=== PATIENT | female | born 1990 | race Caucasian/White ===

== ENCOUNTER 2016-07-18 09:24 | Emergency (ER) | payer BC ==
[2016-07-18 09:41] VITALS: BP 115/73; PULSE 101; O2SAT 99
--- NOTE | 2016-07-18 09:43 | ERPHSYRPT ---
- History of Present Illness Time Seen by Provider: 07/18/16 09:42 Source: patient Exam Limitations: no limitations Patient Subjective Stated Complaint: pt reports intermittant fever all week- tested by pcp for flu-neg results-states that she has a nonproductive cough-all over body aches Triage Nursing Assessment: pt pale warm et dry-a & o x 3-resp nonlabored-lungs clear et equal bilaterally-abd soft et tender to palp-bowel sounds present Physician History: c/o generalised bodyache, low grade fever, dry cough for 2-3 days Timing/Duration: week(s) Fever Severity: mild Associated Symptoms: cough, muscle aches International travel in last 2 weeks: No Allergies/Adverse Reactions: codeine Adverse Reaction (Mild, Verified 07/18/16 09:36) passed out/nauseated Home Medications: No Home Meds 1 ea UD 07/18/16 [History] Hx Tetanus, Diphtheria Vaccination/Date Given: Yes Hx Influenza Vaccination/Date Given: No Hx Pneumococcal Vaccination/Date Given: No Immunizations Up to Date: Yes - Review of Systems Constitutional: Fever, Malaise, No Chills Eyes: No Symptoms Ears, Nose, & Throat: No Symptoms Respiratory: No Cough, No Dyspnea Cardiac: No Chest Pain, No Edema, No Syncope Abdominal/Gastrointestinal: No Abdominal Pain, No Nausea, No Vomiting, No Diarrhea Genitourinary Symptoms: No Dysuria Musculoskeletal: No Back Pain, No Neck Pain Skin: No Rash Neurological: No Dizziness, No Focal Weakness, No Sensory Changes Psychological: No Symptoms Endocrine: No Symptoms All Other Systems: Reviewed and Negative - Past Medical History Pertinent Past Medical History: Yes Neurological History: No Pertinent History ENT History: No Pertinent History Cardiac History: Other Respiratory History: No Pertinent History Endocrine Medical History: No Pertinent History Musculoskeletal History: No Pertinent History GI Medical History: No Pertinent History History: No Pertinent History Psycho-Social History: No Pertinent History Female Reproductive Disorders: No Pertinent History Other Medical History: cardiosyncope - Past Surgical History Past Surgical History: Yes Female Surgical History: Tubal Ligation - Social History Smoking Status: Current every day smoker How long have you smoked: 9 Exposure to second hand smoke: Yes Drug Use: none Patient Lives Alone: No - Female History Hx Last Menstrual Period: current Hx Now: Yes - Nursing Vital Signs Nursing Vital Signs: Initial Vital Signs Temperature 99.1 F Temperature Source Oral Pulse Rate 101 Respiratory Rate 22 Blood Pressure [] 115/73 Pain Intensity 7 - Physical Exam General Appearance: no apparent distress, alert Eye Exam: PERRL/EOMI ENT Exam: normal ENT inspection, No pharyngeal erythema, No tonsillar exudate Neck Exam: supple, full range of motion, No meningismus Respiratory Exam: normal breath sounds, lungs clear, no respiratory distress Cardiovascular/Chest Exam: normal heart sounds, regular rate/rhythm, No murmur, No edema Gastrointestinal/Abdominal Exam: soft, non tender, no distention Extremity Exam: non-tender, normal range of motion, normal inspection, normal capillary refill Neurologic Exam: alert, oriented x 3, cooperative, senior consultant II-XII nml as tested, normal mood/affect, sensation nml, No motor deficits Skin Exam: normal color, warm, dry, No rash SpO2: 99 Oxygen Delivery: Room Air - Course Nursing assessment & vital signs reviewed: Yes - Radiology Exams Chest X-ray Interpretation: Reviewed by me (no acute infiltrate) Ordered Tests: Active Orders 24 hr Category Date Time Status CHEST 2 VIEWS (PA AND LAT) Stat Exams 07/18/16 09:45 Taken CBC W DIFF Stat Lab 07/18/16 09:54 Completed CMP Stat Lab 07/18/16 10:00 Completed CULTURE, THROAT Stat Lab 07/18/16 09:54 Received STREP SCREEN-BETA A Stat Lab 07/18/16 09:54 Completed Lab/Rad Data: Laboratory Result Diagrams 07/18/16 09:54 07/18/16 10:00 Laboratory Results 07/18/16 07/18/16 07/18/16 Range/Units 10:00 09:54 09:54 WBC 3.0 L (4.0-10.5) K/mm3 RBC 4.53 (4.1-5.4) M/mm3 Hgb 14.0 (12.0-16.0) gm/dl Hct 40.1 (35-47) % MCV 88.5 (78-100) fl MCH 30.9 (26-32) pg MCHC 34.9 (32-36) g/dl RDW 12.9 (11.5-14.0) % Plt Count 110 L (150-450) K/mm3 MPV 13.1 H (6-9.5) fl Gran % 52.4 (36.0-66.0) % Lymphocytes % 28.6 (24.0-44.0) % Monocytes % 18.4 H (0.0-12.0) % Eosinophils % 0.3 (0.00-5.0) % Basophils % 0.3 (0.0-0.4) % Basophils # 0.01 (0-0.4) Sodium 143 (136-145) mEq/L Potassium 3.7 (3.5-5.1) mEq/L Chloride 105 (98-107) mEq/L Carbon Dioxide 26.1 (21-32) mEq/L Anion Gap 15.5 H (5-15) MEQ/L BUN 7 L (9-20) mg/dL Creatinine 0.85 (0.55-1.30) mg/dl Estimated GFR > 60 ML/MIN Glucose 83 (70-110) MG/DL Calcium 8.6 (8.5-10.1) mg/dL Total Bilirubin 0.2 (0.2-1.0) mg/dL AST 21 (15-37) U/L ALT 22 (12-78) U/L Alkaline Phosphatase 52 (46-116) U/L Serum Total Protein 7.1 (6.4-8.2) gm/dL Albumin 3.7 (3.4-5.0) g/dL Streptococcus Screen NEGATIVE (Negative) - Progress Progress: unchanged Counseled pt/family regarding: lab results, diagnosis, need for follow-up, rad results - Departure Time of Disposition: 10:56 Departure Disposition: Home Clinical Impression: Acute viral syndrome Condition: Stable Critical Care Time: No Referrals: VENUS JAVED [ACTIVE STAFF] - Instructions: Viral Syndrome, Viral Upper Respiratory Infection -- Adult Prescriptions: Benzonatate [Tessalon Perle] 100 mg PO TID #30 capsule
[2016-07-18 10:02] LABS: BASOPHIL % 0.3 % (0.0-0.4); Eosinophil % 0.3 % (0.00-5.0); Granulocytes % 52.4 % (36.0-66.0); Lymphocytes % 28.6 % (24.0-44.0); Mean Cell Volume 88.5 fl (78-100); Mean Corpuscular Hemoglobin 30.9 pg (26-32); Mean Platelet Volume 13.1 fl (6-9.5); Monocytes % 18.4 % (0.0-12.0); Platelet Count 110 K/mm3 (150-450); Red Blood Count 4.53 M/mm3 (4.1-5.4); Red Cell Distribution Width 12.9 % (11.5-14.0)
[2016-07-18 10:31] LABS: ALBUMIN 3.7 g/dL (3.4-5.0); ALKALINE PHOSPHATASE 52 U/L (46-116); ANION GAP 15.5 MEQ/L (5-15); BILIRUBIN,TOTAL 0.2 mg/dL (0.2-1.0); BLOOD UREA NITROGEN 7 mg/dL (9-20); CHLORIDE 105 mEq/L (98-107); Carbon Dioxide 26.1 mEq/L (21-32); Glucose 83 MG/DL (70-110); Potassium 3.7 mEq/L (3.5-5.1); SGOT/AST 21 U/L (15-37); SGPT/ALT 22 U/L (12-78); SODIUM 143 mEq/L (136-145); Total Protein 7.1 gm/dL (6.4-8.2)
--- NOTE | 2016-07-18 21:05 | XRAY ---
Indication: Fever and cough. Comparison: None PA/lateral chest demonstrate normal heart and lungs. Bony thorax intact with mild pectus excavatum deformity.
== END 2016-07-18 11:06 | disposition home or self-care (01) ==
LOC: ED 09:24
DX: B34.9 Viral infection, unspecified (principal); M79.1 Myalgia; R50.9 Fever, unspecified; R05 Cough
CPT/HCPCS: 36415; 71020; 80053; 85025; 87070; 87430; 87631; 99281

== ENCOUNTER 2018-05-14 07:03 | Emergency (ER) | payer BC, OTHER ==
[2018-05-14] MEDS ORDERED: TORAdol 30 mg Injection IM ONE (07:41)
--- NOTE | 2018-05-14 07:46 | ERPHSYRPT ---
- History of Present Illness Time Seen by Provider: 05/14/18 07:41 Source: patient, intake counselor Patient Subjective Stated Complaint: left bottom back tooth pain that radiates to the left ear Triage Nursing Assessment: Pt c/o that for the past 3 days her bottom left back tooth has been hurting and the pain radiates to her left ear, filling is missing on the bottom left back of mouth and reports that it has been missing for a while, vitals wnl, no other issues at this time Physician History: The patient is a 28-year-old female complaining of worsening left lower dental/ jaw pain for 4 days. The pain is now radiating up towards her left ear. She has a known cavity in the second molar. It hurts when she swallows cold liquid on that side of her mouth and it also hurts when she chews food on that side of her mouth. She denies fever or chills. Timing/Duration: gradual onset, days (4) Severity: moderate ENT Location: dental Prearrival Treatment: over the counter meds Modifying Factors: Improves With: nothing Associated Symptoms: ear pain (L), jaw pain, tooth pain, No change in hearing Allergies/Adverse Reactions: codeine Adverse Reaction (Mild, Verified 05/14/18 07:15) passed out/nauseated Hx Tetanus, Diphtheria Vaccination/Date Given: Yes Hx Influenza Vaccination/Date Given: No Hx Pneumococcal Vaccination/Date Given: No - Review of Systems Constitutional: No Fever, No Chills Eyes: No Symptoms Ears, Nose, & Throat: Mouth Pain, Other (dental pain), No Hearing Changes Respiratory: No Cough, No Dyspnea Cardiac: No Chest Pain, No Edema, No Syncope Abdominal/Gastrointestinal: No Abdominal Pain, No Nausea, No Vomiting, No Diarrhea Genitourinary Symptoms: No Dysuria Musculoskeletal: No Back Pain, No Neck Pain Skin: No Rash Neurological: No Dizziness, No Focal Weakness, No Sensory Changes Psychological: No Symptoms Endocrine: No Symptoms Hematologic/Lymphatic: No Symptoms Immunological/Allergic: No Symptoms All Other Systems: Reviewed and Negative - Past Medical History Pertinent Past Medical History: Yes Neurological History: No Pertinent History ENT History: No Pertinent History Cardiac History: Other Respiratory History: No Pertinent History Endocrine Medical History: No Pertinent History Musculoskeletal History: No Pertinent History GI Medical History: No Pertinent History History: No Pertinent History Psycho-Social History: No Pertinent History Female Reproductive Disorders: No Pertinent History Other Medical History: cardiosyncope - Past Surgical History Past Surgical History: Yes Female Surgical History: Tubal Ligation - Social History Smoking Status: Current every day smoker How long have you smoked: 9 Exposure to second hand smoke: Yes Drug Use: none Patient Lives Alone: No - Female History Hx Now: No (tubal) - Nursing Vital Signs Nursing Vital Signs: Initial Vital Signs Temperature 97.8 F 05/14/18 07:09 Pulse Rate 85 05/14/18 07:09 Blood Pressure 113/77 05/14/18 07:09 O2 Sat by Pulse Oximetry 98 05/14/18 07:09 Pain Scale Pain Intensity 8 - Physical Exam General Appearance: no apparent distress, alert Eye Exam: bilateral eye: normal inspection, PERRL Ear Exam: left ear: TM normal, bilateral ear: auricle normal, canal normal Nasal Exam: normal inspection Throat Exam: dental tenderness (There is a cavity in the second molar from the rear on the left lower jaw. This has tenderness to palpation. There is minimal swelling or edema of the she rounding gum tissue.) Neck Exam: supple Cardiovascular/Respiratory Exam: normal breath sounds, regular rate/rhythm Abdominal Exam: non-tender, soft Neurologic Exam: alert, oriented x 3, sensation nml, No motor deficits Skin Exam: normal color, warm, dry SpO2 Interpretation: normal SpO2: 98 Oxygen Delivery: Room Air - Progress Progress: improved Counseled pt/family regarding: diagnosis, need for follow-up - Departure Time of Disposition: 07:47 Departure Disposition: Home Clinical Impression: Pain, dental Condition: Stable Critical Care Time: No Referrals: VALENCIA WILKES [Primary Care Provider] - Additional Instructions: You have dental pain that is due to a cavity in the tooth on the left lower jaw. You were given Toradol 60 mg by IM in the ER. Take naproxen 500 mg every 12 hours as needed. You may also take Tylenol 1000 mg every 6-8 hours. Take penicillin 500 mg 4 times a day for 10 days. Apply dental wax from over-the- counter to the cavity. Follow-up with the dentist as soon as possible. Prescriptions: Naproxen 500 mg PO BID PRN #30 tablet Penicillin V Potassium 500 mg PO QID #40 tablet
[2018-05-14] MEDS ORDERED: TORAdol 30 mg Injection ONE (07:53)
[2018-05-14 08:05] VITALS: BP 129/81; PULSE 70; O2SAT 100
== END 2018-05-14 08:23 | disposition home or self-care (01) ==
LOC: ED 07:03
DX: K08.89 Other specified disorders of teeth and supporting structures (principal)
CPT/HCPCS: 96372; 99283; J1885

== ENCOUNTER 2020-11-04 08:45 | Emergency (ER) | payer BC ==
[2020-11-04 09:03] VITALS: O2SAT 98
--- NOTE | 2020-11-04 09:25 | ERPHSYRPT ---
- History of Present Illness Time Seen by Provider: 11/04/20 09:00 Historian: patient Exam Limitations: no limitations Patient Subjective Stated Complaint: Pt states that she was having severe pain and went to the bathroom and she began vomiting from the pain, bowel movement was normal but extremely painful, hx of same issue Triage Nursing Assessment: Pt brought self to the ER, vitals wnl, denies pain at this time, tender to palpatation to the RLQ, pt states that the pain originally was in her greg lower back and it radiated to her greg lower abdomen, doesn't appear to be in any distress at this time Physician History: Patient is a 30-year-old female presents to our ED with complaints of abdominal cramping. Patient has been experiencing intermittent abdominal cramping for several months possibly even years. Today symptoms are typical of her usual cramping. Patient states that most of the time she can tolerate the pain is spontaneously resolved. Occasionally the pain worsens to the point where she comes to the ER for pain control. Patient is currently asymptomatic. Patient's most recent cramping occurred this morning. Patient states the pain made her feel nauseous and she vomited once. Patient had 2 bowel movements afterward. The pain then significantly subsided. Patient is currently pain-free. However she has slight tenderness over the suprapubic region. She has no right lower quadrant tenderness. No rebound or guarding. Patient states she has a history of irritable bowel syndrome. Patient believes her symptoms are the same. No associated fever. No diarrhea. No bloody stool. No urinary symptoms at this time. Patient states she is otherwise healthy. She denies trauma. Patient voices no other complaints or concerns at this time. Timing/Duration: today Activities at Onset: none Quality: cramping Abdominal Pain Onset Location: periumbilical Pain Radiation: no radiation Severity of Pain-Max: moderate Severity of Pain-Current: mild Modifying Factors: Improves With: defecating (Bowel movement significantly improved pain.) Associated Symptoms: nausea, vomiting, No diarrhea, No shortness of breath, No syncope, No weakness Previous symptoms: same symptoms as today Allergies/Adverse Reactions: codeine Adverse Reaction (Mild, Verified 11/04/20 09:03) passed out/nauseated Hx Tetanus, Diphtheria Vaccination/Date Given: Yes Hx Influenza Vaccination/Date Given: No Hx Pneumococcal Vaccination/Date Given: No Travel Risk - International Travel Have you traveled outside of the country in past 3 weeks: No - Coronavirus Screening Are you exhibiting any of the following symptoms?: No Close contact with a COVID-19 positive Pt in past 14-21 Days: No - Vaccine Status Have you recieved a Covid-19 vaccination: No - Review of Systems Constitutional: No Symptoms, No Fever, No Chills Eyes: No Symptoms Ears, Nose, & Throat: No Symptoms Respiratory: No Symptoms, No Cough, No Dyspnea Cardiac: No Symptoms, No Chest Pain, No Edema, No Syncope Abdominal/Gastrointestinal: No Symptoms, No Abdominal Pain, No Nausea, No Vomiting, No Diarrhea Genitourinary Symptoms: No Symptoms, No Dysuria Musculoskeletal: No Symptoms, No Back Pain, No Neck Pain Skin: No Symptoms, No Rash Neurological: No Symptoms, No Dizziness, No Focal Weakness, No Sensory Changes Psychological: No Symptoms Endocrine: No Symptoms Hematologic/Lymphatic: No Symptoms Immunological/Allergic: No Symptoms All Other Systems: Reviewed and Negative - Past Medical History Pertinent Past Medical History: Yes Neurological History: No Pertinent History ENT History: No Pertinent History Cardiac History: Other Respiratory History: No Pertinent History Endocrine Medical History: No Pertinent History Musculoskeletal History: No Pertinent History GI Medical History: No Pertinent History History: No Pertinent History Psycho-Social History: No Pertinent History Female Reproductive Disorders: No Pertinent History Other Medical History: cardiosyncope - Past Surgical History Past Surgical History: Yes Female Surgical History: Tubal Ligation - Social History Smoking Status: Current every day smoker How long have you smoked: 9 Exposure to second hand smoke: Yes Drug Use: none Patient Lives Alone: No - Female History Hx Last Menstrual Period: 10/07/2020 Hx Now: No - Nursing Vital Signs Nursing Vital Signs: Initial Vital Signs Temperature 97.0 F 11/04/20 08:52 Pulse Rate 67 11/04/20 08:52 Blood Pressure 135/73 11/04/20 08:52 O2 Sat by Pulse Oximetry 98 11/04/20 08:52 Pain Scale Pain Intensity 2 - Physical Exam General Appearance: no apparent distress, alert Eye Exam: PERRL/EOMI, eyes nml inspection Ears, Nose, Throat Exam: normal ENT inspection, pharynx normal, moist mucous membranes Neck Exam: normal inspection, non-tender, supple, full range of motion Respiratory Exam: normal breath sounds, lungs clear, No respiratory distress Cardiovascular Exam: regular rate/rhythm, normal heart sounds Gastrointestinal/Abdomen Exam: soft, other (Slight suprapubic tenderness. Remaining abdominal exam and pelvic exam is nonremarkable. Patient currently pain-free.), No tenderness, No mass Back Exam: normal inspection, normal range of motion, No CVA tenderness, No ve rtebral tenderness Extremity Exam: normal inspection, normal range of motion, pelvis stable Neurologic Exam: alert, oriented x 3, cooperative, normal mood/affect, nml cerebellar function, sensation nml, No motor deficits Skin Exam: normal color, warm, dry Lymphatic Exam: No adenopathy SpO2 Interpretation: normal SpO2: 98 O2 Delivery: Room Air - Course Nursing assessment & vital signs reviewed: Yes - Radiology Exams Abdomen X-ray Interpretation: Teleradiologist Report (KUB again nonacute and nonobstructed with now mild scattered fecal debris. Solid organs and osseous structures unremarkable.) Ordered Tests: Active Orders 24 hr Category Date Time Status IV Insertion STAT Care 11/04/20 09:07 Completed KUB Stat Exams 11/04/20 09:07 Completed CBC W DIFF Stat Lab 11/04/20 09:47 Completed CMP Stat Lab 11/04/20 09:47 Completed HCG,QUALITATIVE URINE Stat Lab 11/04/20 09:09 Completed LIPASE Stat Lab 11/04/20 09:47 Completed TROPONIN Q3H Lab 11/04/20 09:47 Completed UA W/RFX UR CULTURE Stat Lab 11/04/20 09:09 Completed Lab/Rad Data: Laboratory Result Diagrams 11/04/20 09:47 11/04/20 09:47 Laboratory Results 11/04/20 11/04/20 11/04/20 Range/Units 09:47 09:47 09:47 WBC 8.0 (4.0-10.5) K/mm3 RBC 4.60 (4.1-5.4) M/mm3 Hgb 13.7 (12.0-16.0) gm/dl Hct 41.6 (35-47) % MCV 90.4 (78-100) fl MCH 29.8 (26-32) pg MCHC 32.9 (32-36) g/dl RDW 13.2 (11.5-14.0) % Plt Count 199 (150-450) K/mm3 MPV 12.6 H (7.5-11.0) fl Gran % 64.6 (36.0-66.0) % Eos # (Auto) 0.32 (0-0.5) Absolute Lymphs (auto) 1.97 (1.0-4.6) Absolute Monos (auto) 0.54 (0.0-1.3) Lymphocytes % 24.5 (24.0-44.0) % Monocytes % 6.7 (0.0-12.0) % Eosinophils % 4.0 (0.00-5.0) % Basophils % 0.2 (0.0-0.4) % Absolute Granulocytes 5.18 (1.4-6.9) Basophils # 0.02 (0-0.4) Sodium 138 (137-145) mmol/L Potassium 4.1 (3.5-5.1) mmol/L Chloride 106 (98-107) mmol/L Carbon Dioxide 24 (22-30) mmol/L Anion Gap 11.5 (5-15) MEQ/L BUN 13 (7-17) mg/dL Creatinine 0.81 (0.52-1.04) mg/dL Estimated GFR > 60.0 ML/MIN Glucose 103 (74-106) mg/dL Calcium 8.9 (8.4-10.2) mg/dL Total Bilirubin 0.30 (0.2-1.3) mg/dL AST 18 (14-36) U/L ALT 15 (0-35) U/L Alkaline Phosphatase 58 (38-126) U/L Troponin I < 0.012 (0.000-0.034) ng/mL Serum Total Protein 7.2 (6.3-8.2) g/dL Albumin 4.2 (3.5-5.0) g/dL Lipase 65 (23-300) U/L Urine Color (YELLOW) Urine Appearance (CLEAR) Urine pH (5-6) Ur Specific [place] (1.005-1.025) Urine Protein (Negative) Urine Ketones (NEGATIVE) Urine Blood (0-5) Lester/ul Urine Nitrite (NEGATIVE) Urine Bilirubin (NEGATIVE) Urine Urobilinogen (0-1) mg/dL Ur Leukocyte Esterase (NEGATIVE) Urine WBC (Auto) (0-5) /HPF Urine RBC (Auto) (0-2) /HPF U Epithel Cells (Auto) (FEW) /HPF Urine Bacteria (Auto) (NEGATIVE) /HPF Urine Mucus (Auto) (NEGATIVE) /HPF Urine Culture Reflexed (NO) Urine Glucose (NEGATIVE) mg/dL Urine HCG, Qual (Negative) 11/04/20 11/04/20 Range/Units 09:09 09:09 WBC (4.0-10.5) K/mm3 RBC (4.1-5.4) M/mm3 Hgb (12.0-16.0) gm/dl Hct (35-47) % MCV (78-100) fl MCH (26-32) pg MCHC (32-36) g/dl RDW (11.5-14.0) % Plt Count (150-450) K/mm3 MPV (7.5-11.0) fl Gran % (36.0-66.0) % Eos # (Auto) (0-0.5) Absolute Lymphs (auto) (1.0-4.6) Absolute Monos (auto) (0.0-1.3) Lymphocytes % (24.0-44.0) % Monocytes % (0.0-12.0) % Eosinophils % (0.00-5.0) % Basophils % (0.0-0.4) % Absolute Granulocytes (1.4-6.9) Basophils # (0-0.4) Sodium (137-145) mmol/L Potassium (3.5-5.1) mmol/L Chloride (98-107) mmol/L Carbon Dioxide (22-30) mmol/L Anion Gap (5-15) MEQ/L BUN (7-17) mg/dL Creatinine (0.52-1.04) mg/dL Estimated GFR ML/MIN Glucose (74-106) mg/dL Calcium (8.4-10.2) mg/dL Total Bilirubin (0.2-1.3) mg/dL AST (14-36) U/L ALT (0-35) U/L Alkaline Phosphatase (38-126) U/L Troponin I (0.000-0.034) ng/mL Serum Total Protein (6.3-8.2) g/dL Albumin (3.5-5.0) g/dL Lipase (23-300) U/L Urine Color YELLOW (YELLOW) Urine Appearance CLEAR (CLEAR) Urine pH 5.0 (5-6) Ur Specific [place] 1.025 (1.005-1.025) Urine Protein NEGATIVE (Negative) Urine Ketones NEGATIVE (NEGATIVE) Urine Blood NEGATIVE (0-5) Lester/ul Urine Nitrite NEGATIVE (NEGATIVE) Urine Bilirubin NEGATIVE (NEGATIVE) Urine Urobilinogen 2 (0-1) mg/dL Ur Leukocyte Esterase NEGATIVE (NEGATIVE) Urine WBC (Auto) 0-2 (0-5) /HPF Urine RBC (Auto) 0-2 (0-2) /HPF U Epithel Cells (Auto) RARE (FEW) /HPF Urine Bacteria (Auto) NONE (NEGATIVE) /HPF Urine Mucus (Auto) SLIGHT (NEGATIVE) /HPF Urine Culture Reflexed NO (NO) Urine Glucose NEGATIVE (NEGATIVE) mg/dL Urine HCG, Qual NEGATIVE (Negative) - Progress Progress: improved Progress Note: Patient reassessed. She is well. Vital stable. She remains pain-free. Laboratory work-up essentially nonremarkable. No leukocytosis. A prescription for Bentyl was forwarded to patient's pharmacy. Patient agrees to follow-up with her primary care doctor within 48 hours for reevaluation. Patient voices no other complaints or concerns at this time. Will discharge home. 11/04/20 10:36 Counseled pt/family regarding: lab results, diagnosis, need for follow-up, rad results - Departure Departure Disposition: Home Clinical Impression: intestinal colic, Abdominal cramping Condition: Stable Critical Care Time: No Referrals: VALENCIA WILKES [Primary Care Provider] - Additional Instructions: Discharge/Care Plan ISAAC JEREZ was seen on 11/04/20 in the Emergency Room. The patient was counseled regarding Diagnosis,Lab results, Imaging studies, need for follow up and when to return to the Emergency Room. Prescriptions given: Discharge Note I have spoken with the patient and/or caregivers. I have explained the patient's condition, diagnosis and treatment plan based on the information available to me at this time. I have answered the patient's and/or caregiver's questions and addressed any concerns. The patient and/or caregivers have as good understanding of the patient's diagnosis, condition and treatment plan as can be expected at this point. The vital signs have been stable. The patient's condition is stable and appropriate for discharge from the emergency department. The patient will pursue further outpatient evaluation with the primary care physician or other designated or consulting physician as outlined in the discharge instructions. The patient and/or caregivers are agreeable to this plan of care and follow-up instructions have been explained in detail. The patient and/or caregivers have received these instruction. The patient/and or caregivers are aware that any significant change in condition or worsening of symptoms should prompt an immediate return to this or the closest emergency department or call 911. Prescriptions: Dicyclomine HCl 20 mg [Bentyl 20 mg] 20 mg PO TID 5 Days #15 tablet
--- NOTE | 2020-11-04 09:30 | XRAY ---
Indication: Pain with bowel movements. Comparison: November 03, 2016. KUB again nonacute and nonobstructed with now mild scattered fecal debris. Solid organs and osseous structures unremarkable.
[2020-11-04 09:49] LABS: Absolute Neutrophil Ct (ANC) 5.18 (1.4-6.9); BASOPHIL % 0.2 % (0.0-0.4); Basophil (Absolute #) 0.02 (0-0.4); Eosinophil (Absolute #) 0.32 (0-0.5); Hematocrit 41.6 % (35-47); Hemoglobin 13.7 gm/dl (12.0-16.0); Lymphocyte (Absolute #) 1.97 (1.0-4.6); Lymphocytes % 24.5 % (24.0-44.0); Mean Cell Volume 90.4 fl (78-100); Mean Corpuscular Hemoglobin 29.8 pg (26-32); Mean Corpuscular Hgb Concent. 32.9 g/dl (32-36); Mean Platelet Volume 12.6 fl (7.5-11.0); Monocyte (Absolute #) 0.54 (0.0-1.3); Monocytes % 6.7 % (0.0-12.0); Neutrophil % 64.6 % (36.0-66.0); Platelet Count 199 K/mm3 (150-450); Red Cell Distribution Width 13.2 % (11.5-14.0)
[2020-11-04 10:00] LABS: ALBUMIN 4.2 g/dL (3.5-5.0); ALKALINE PHOSPHATASE 58 U/L (38-126); ANION GAP 11.5 MEQ/L (5-15); BLOOD UREA NITROGEN 13 mg/dL (7-17); CHLORIDE 106 mmol/L (98-107); Calcium 8.9 mg/dL (8.4-10.2); Carbon Dioxide 24 mmol/L (22-30); Creatinine 1 0.81 mg/dL (0.52-1.04); EST GLOMERULAR FILTRATION RATE > 60.0 ML/MIN; Glucose 103 mg/dL (74-106); LIPASE 65 U/L (23-300); Potassium 4.1 mmol/L (3.5-5.1); SGOT/AST 18 U/L (14-36); SGPT/ALT 15 U/L (0-35); SODIUM 138 mmol/L (137-145); Total Protein 7.2 g/dL (6.3-8.2)
[2020-11-04 10:15] LABS: Appearance CLEAR (CLEAR); Bilirubin NEGATIVE (NEGATIVE); Blood NEGATIVE Ery/ul (0-5); Epithelial Cells RARE /HPF (FEW); Glucose NEGATIVE (NEGATIVE); Ketones NEGATIVE (NEGATIVE); Leukocyte Esterase NEGATIVE (NEGATIVE); Mucus SLIGHT /HPF (NEGATIVE); Nitrite NEGATIVE (NEGATIVE); Protein,Urine Dip NEGATIVE (Negative); RBC 0-2 /HPF (0-2); Specific Gravity 1.025 (1.005-1.025); Urobilinogen 2 mg/dL (0-1); WBC 0-2 /HPF (0-5)
[2020-11-04 10:35] VITALS: BP 128/71; PULSE 62
== END 2020-11-04 10:45 | disposition home or self-care (01) ==
LOC: ED 08:45
DX: R10.84 Generalized abdominal pain (principal)
CPT/HCPCS: 36000; 36415; 74018; 80053; 81001; 83690; 84484; 84703; 85025; 99284

== ENCOUNTER 2021-10-11 12:15 | Emergency (ER) | payer BC ==
--- NOTE | 2021-10-11 13:28 | ERPHSYRPT ---
- History of Present Illness Time Seen by Provider: 10/11/21 13:22 Source: patient Exam Limitations: no limitations Patient Subjective Stated Complaint: pt here for weakness for over a week now, her in covid positive, fever 3 days ago, none now. drinking well Triage Nursing Assessment: pt alert, walked in, resp easy, skin w/d/p, face mask in place, no edema, no cough Physician History: pt is feeling weak, had prior w/u and told cardio syncope and no procedure other than testing. no focal neuro deficits. No headache , no trauma. No chest or abd pain or SOBreath. has Covid. Timing/Duration: day(s) Severity: moderate Associated Symptoms: weakness Allergies/Adverse Reactions: codeine Adverse Reaction (Mild, Verified 10/11/21 12:44) passed out/nauseated Home Medications: No Reportable Medications [No Reported Medications] 10/11/21 [History] Hx Tetanus, Diphtheria Vaccination/Date Given: No Hx Influenza Vaccination/Date Given: No Hx Pneumococcal Vaccination/Date Given: No Immunizations Up to Date: Yes Travel Risk - International Travel Have you traveled outside of the country in past 3 weeks: No - Coronavirus Screening Are you exhibiting any of the following symptoms?: Yes Symptoms: Shortness of Breath, Loss of Taste or Smell Close contact with a COVID-19 positive Pt in past 14-21 Days: Yes - Vaccine Status Have you recieved a Covid-19 vaccination: No - Review of Systems Constitutional: No Fever, No Chills Eyes: No Symptoms Ears, Nose, & Throat: No Symptoms Respiratory: No Cough, No Dyspnea Cardiac: No Chest Pain, No Edema, No Syncope Abdominal/Gastrointestinal: No Abdominal Pain, No Nausea, No Vomiting, No Diarrhea Genitourinary Symptoms: No Dysuria Musculoskeletal: Myalgias, No Back Pain, No Neck Pain Skin: No Rash Neurological: No Symptoms, No Dizziness, No Focal Weakness, No Sensory Changes Psychological: No Symptoms Endocrine: No Symptoms Hematologic/Lymphatic: No Symptoms Immunological/Allergic: No Symptoms All Other Systems: Reviewed and Negative - Past Medical History Pertinent Past Medical History: Yes Neurological History: No Pertinent History ENT History: No Pertinent History Cardiac History: Other Respiratory History: No Pertinent History Endocrine Medical History: No Pertinent History Musculoskeletal History: No Pertinent History GI Medical History: No Pertinent History History: No Pertinent History Psycho-Social History: No Pertinent History Female Reproductive Disorders: No Pertinent History Other Medical History: cardiosyncope - Past Surgical History Past Surgical History: Yes Female Surgical History: Tubal Ligation - Social History Smoking Status: Current every day smoker How long have you smoked: 9 Exposure to second hand smoke: Yes Drug Use: none Patient Lives Alone: No - Female History Hx Last Menstrual Period: last week Hx Now: No - Nursing Vital Signs Nursing Vital Signs: Initial Vital Signs Pulse Rate 97 H 10/11/21 12:39 Respiratory Rate 18 10/11/21 12:39 Blood Pressure 120/77 10/11/21 12:39 O2 Sat by Pulse Oximetry 100 10/11/21 12:39 Pain Scale Pain Intensity 0 - Physical Exam General Appearance: no apparent distress, alert Eye Exam: PERRL/EOMI, eyes nml inspection Ears, Nose, Throat Exam: normal ENT inspection, TMs normal, pharynx normal, moist mucous membranes Neck Exam: normal inspection, non-tender, supple, full range of motion Respiratory Exam: normal breath sounds, lungs clear, No respiratory distress Cardiovascular Exam: regular rate/rhythm, normal heart sounds, normal peripheral pulses Gastrointestinal/Abdomen Exam: soft, normal bowel sounds, No tenderness, No mass Pelvic Exam: deferred Rectal Exam: deferred Back Exam: normal inspection, normal range of motion, No CVA tenderness, No vertebral tenderness Extremity Exam: normal inspection, normal range of motion, pelvis stable Neurologic Exam: alert, oriented x 3, cooperative, normal mood/affect, nml cerebellar function, nml station & gait, sensation nml, No motor deficits Skin Exam: normal color, warm, dry, No rash Lymphatic Exam: No adenopathy SpO2 Interpretation: normal SpO2: 100 O2 Delivery: Room Air - Course Nursing assessment & vital signs reviewed: Yes EKG Interpreted by Me: Sinus Rhythm, NORMAL AXIS, NORMAL INTERVALS, NORMAL QRS, Other (appears normal) - Radiology Exams Chest X-ray Interpretation: Reviewed by me, No Infiltrates, Other (circulaR HEART) Ordered Tests: Active Orders 24 hr Category Date Time Status EKG-ER Only STAT Care 10/11/21 13:31 Active IV Insertion STAT Care 10/11/21 13:31 Active CHEST 1 VIEW (PORTABLE) Stat Exams 10/11/21 13:57 Taken CBC W DIFF Stat Lab 10/11/21 14:04 Received CMP Stat Lab 10/11/21 14:04 Completed HCG QUALITATIVE,SERUM Stat Lab 10/11/21 14:04 Completed Lactic Acid Stat Lab 10/11/21 13:31 Completed TROPONIN Q3H Lab 10/11/21 14:04 Completed TROPONIN Q3H Lab 10/11/21 16:45 Ordered TROPONIN Q3H Lab 10/11/21 19:45 Ordered TROPONIN Q3H Lab 10/11/21 22:45 Ordered TROPONIN Q3H Lab 10/12/21 01:45 Ordered UA W/RFX CULTURE Stat Lab 10/11/21 13:47 Completed Medication Summary Discontinued Medications Generic Name Dose Route Start Last Admin Trade Name Anthonyq PRN Reason Stop Dose Admin Sodium Chloride 1,000 mls @ 999 mls/hr 10/11/21 13:31 10/11/21 15:02 Sodium Chloride 0.9% 1000 Ml IV 10/11/21 14:31 Infused .Q1H1M STA Infusion Sodium Chloride Confirm 10/11/21 13:43 Sodium Chloride 0.9% 1000 Ml Administered 10/11/21 13:44 Dose 1,000 mls @ ud .ROUTE .[facility] Lab/Rad Data: Laboratory Result Diagrams 10/11/21 14:04 Laboratory Results 10/11/21 10/11/21 10/11/21 Range/Units 14:04 14:04 14:04 Sodium 143 (137-145) mmol/L Potassium 3.8 (3.5-5.1) mmol/L Chloride 106 (98-107) mmol/L Carbon Dioxide 27 (22-30) mmol/L Anion Gap 13.2 (5-15) MEQ/L BUN 5 L (7-17) mg/dL Creatinine 0.71 (0.52-1.04) mg/dL Estimated GFR > 60.0 ML/MIN Glucose 103 (74-106) mg/dL Lactic Acid (0.4-2.0) Calcium 9.2 (8.4-10.2) mg/dL Total Bilirubin 0.70 (0.2-1.3) mg/dL AST 18 (14-36) U/L ALT 17 (0-35) U/L Alkaline Phosphatase 63 (38-126) U/L Troponin I < 0.012 (0.000-0.034) ng/mL Serum Total Protein 6.7 (6.3-8.2) g/dL Albumin 3.8 (3.5-5.0) g/dL Serum , Qual NEGATIVE (Negative) Urinalys Dipstick Clnc Urine Color (YELLOW) Urine Appearance (CLEAR) Urine pH (5-6) Ur Specific [place] (1.005-1.025) POC Urine Protein Conf (Negative) Urine Ketones (NEGATIVE) Urine Nitrite (NEGATIVE) Urine Bilirubin (NEGATIVE) Urine Urobilinogen (0-1) mg/dL Urine Leukocytes (NEGATIVE) Urine WBC (Auto) (0-5) /HPF Urine RBC (Auto) (0-2) /HPF U Epithel Cells (Auto) (FEW) /HPF Urine Bacteria (Auto) (NEGATIVE) /HPF Urine RBC (0-5) Lester/ul Ur Culture Indicated? Urine Glucose (NEGATIVE) mg/dL Influenza Type A Ag (NEGATIVE) Influenza Type B Ag (NEGATIVE) RSV (PCR) (Negative) SARS-CoV-2 (PCR) (NEGATIVE) 10/11/21 10/11/21 10/11/21 Range/Units 14:04 13:47 13:31 Sodium (137-145) mmol/L Potassium (3.5-5.1) mmol/L Chloride (98-107) mmol/L Carbon Dioxide (22-30) mmol/L Anion Gap (5-15) MEQ/L BUN (7-17) mg/dL Creatinine (0.52-1.04) mg/dL Estimated GFR ML/MIN Glucose (74-106) mg/dL Lactic Acid 0.7 (0.4-2.0) Calcium (8.4-10.2) mg/dL Total Bilirubin (0.2-1.3) mg/dL AST (14-36) U/L ALT (0-35) U/L Alkaline Phosphatase (38-126) U/L Troponin I (0.000-0.034) ng/mL Serum Total Protein (6.3-8.2) g/dL Albumin (3.5-5.0) g/dL Serum , Qual (Negative) Urinalys Dipstick Clnc MAIN LAB Urine Color YELLOW (YELLOW) Urine Appearance CLEAR (CLEAR) Urine pH 6.5 (5-6) Ur Specific [place] <=1.005 (1.005-1.025) POC Urine Protein Conf NEGATIVE (Negative) Urine Ketones NEGATIVE (NEGATIVE) Urine Nitrite NEGATIVE (NEGATIVE) Urine Bilirubin NEGATIVE (NEGATIVE) Urine Urobilinogen 0.2 (0-1) mg/dL Urine Leukocytes NEGATIVE (NEGATIVE) Urine WBC (Auto) NONE (0-5) /HPF Urine RBC (Auto) NONE (0-2) /HPF U Epithel Cells (Auto) NONE (FEW) /HPF Urine Bacteria (Auto) NONE (NEGATIVE) /HPF Urine RBC SMALL (0-5) Lester/ul Ur Culture Indicated? NO Urine Glucose NEGATIVE (NEGATIVE) mg/dL Influenza Type A Ag NEGATIVE (NEGATIVE) Influenza Type B Ag NEGATIVE (NEGATIVE) RSV (PCR) NEGATIVE (Negative) SARS-CoV-2 (PCR) POSITIVE A (NEGATIVE) - Progress Progress: improved, re-examined Progress Note: 10/11/21 15:35 cardiac score <3 atypical symptoms for cardiac and COvid diagnosis most likely source of symptoms. Wells crit low and percs out. chest clear. No actual chest pain. 10/11/21 15:50 Counseled pt/family regarding: lab results, diagnosis, need for follow-up, rad results - Departure Departure Disposition: Home Clinical Impression: COVID-19 Condition: Good Critical Care Time: No Referrals: VALENCIA WILKES NP [Primary Care Provider] - Follow up/PCP as directed Instructions: Coronavirus Disease 2019 (COVID-19) (DC), Blood in the Urine (Hematuria) in Adults Additional Instructions: Followup with your for the heart shape on the x-ray, and to recheck the trace blood in urine. Quaratine for the covid virus as advised. Return meantime if short of breath or any other concerns.
[2021-10-11] MEDS ORDERED: Sodium Chloride 0.9% 1000 ML 1,000 ML IV STA (13:31)
[2021-10-11] MEDS ORDERED: Sodium Chloride 0.9% 1000 ML 1,000 ML ONE (13:43)
[2021-10-11 13:55] LABS: Absolute Neutrophil Ct (ANC) 5.38 x10^3/uL (1.4-6.9); Basophil (Absolute #) 0.02 x10^3/uL (0-0.4); Eosinophil % 0.7 % (0.00-5.0); Eosinophil (Absolute #) 0.05 x10^3/uL (0-0.5); Hematocrit 37.8 % (35-47); Hemoglobin 12.8 g/dL (12.0-16.0); Lymphocyte (Absolute #) 1.26 x10^3/uL (1.0-4.6); Lymphocytes % 16.8 % (24.0-44.0); Mean Corpuscular Hemoglobin 30.5 pg (26-32); Mean Corpuscular Hgb Concent. 33.9 g/dL (32-36); Mean Platelet Volume 11.7 fL (7.5-11.0); Monocyte (Absolute #) 0.75 x10^3/uL (0.0-1.3); Neutrophil % 71.8 % (36.0-66.0); Platelet Count 145 x10^3/uL (150-450); Red Cell Distribution Width 12.5 % (11.5-14.0); White Blood Count 7.5 x10^3/uL (4.0-10.5)
[2021-10-11 13:59] LABS: Appearance CLEAR (CLEAR); Bilirubin NEGATIVE (NEGATIVE); Dipstick done @ ? MAIN LAB; Glucose NEGATIVE (NEGATIVE); Ketones NEGATIVE (NEGATIVE); Nitrite NEGATIVE (NEGATIVE); Ph 6.5 (5-6); Protein,Urine Dip NEGATIVE (Negative); RBC SMALL Ery/ul (0-5); Specific Gravity <=1.005 (1.005-1.025); Urobilinogen 0.2 mg/dL (0-1)
[2021-10-11 14:01] LABS: Urine Cultured Indicated? NO
[2021-10-11 14:16] LABS: ALBUMIN 3.8 g/dL (3.5-5.0); ALKALINE PHOSPHATASE 63 U/L (38-126); ANION GAP 13.2 MEQ/L (5-15); BLOOD UREA NITROGEN 5 mg/dL (7-17); CHLORIDE 106 mmol/L (98-107); Calcium 9.2 mg/dL (8.4-10.2); Carbon Dioxide 27 mmol/L (22-30); Creatinine 1 0.71 mg/dL (0.52-1.04); EST GLOMERULAR FILTRATION RATE > 60.0 ML/MIN; Glucose 103 mg/dL (74-106); Potassium 3.8 mmol/L (3.5-5.1); SGOT/AST 18 U/L (14-36); SGPT/ALT 17 U/L (0-35); SODIUM 143 mmol/L (137-145); Total Protein 6.7 g/dL (6.3-8.2)
[2021-10-11 14:31] LABS: INFLUENZA A NEGATIVE (NEGATIVE); INFLUENZA B NEGATIVE (NEGATIVE); RESPIRATORY SYNCTIAL VIRUS NEGATIVE (Negative)
[2021-10-11 15:07] LABS: SARS-CoV-2 Xpert Express POSITIVE (NEGATIVE)
[2021-10-11 15:14] VITALS: BP 98/67; PULSE 71
[2021-10-11 15:48] VITALS: O2SAT 100
--- NOTE | 2021-10-11 21:11 | XRAY ---
Indication: Weakness. Covid 19 exposure. Comparison: July 18, 2016. Portable chest again demonstrates normal heart, lungs, and bony thorax.
== END 2021-10-11 15:57 | disposition home or self-care (01) ==
LOC: ED 12:15
DX: U07.1 COVID-19 (principal); R53.1 Weakness; Z20.822 Contact with and (suspected) exposure to COVID-19; Z72.0 Tobacco use
CPT/HCPCS: 0241U; 36000; 36415; 71045; 80053; 81015; 81025; 83605; 84484; 85025; 93005; 96360; 99284

== ENCOUNTER 2022-08-05 07:55 | Emergency (ER) | payer BC ==
[2022-08-05] MEDS ORDERED: Sodium Chloride 0.9% 1000 ML 1,000 ML IV STA (08:51)
[2022-08-05] MEDS ORDERED: Sodium Chloride 0.9% 1000 ML 1,000 ML ONE (09:01)
[2022-08-05 09:11] LABS: Absolute Neutrophil Ct (ANC) 3.62 x10^3/uL (1.4-6.9); Basophil (Absolute #) 0.06 x10^3/uL (0-0.4); Eosinophil % 3.9 % (0.00-5.0); Eosinophil (Absolute #) 0.24 x10^3/uL (0-0.5); Hematocrit 41.5 % (35-47); Hemoglobin 13.5 g/dL (12.0-16.0); IMMATURE GRAN # 0.02 x10^3u/L (0.00-0.03); IMMATURE GRAN % 0.3 % (0.00-0.4); Lymphocytes % 26.2 % (24.0-44.0); Mean Cell Volume 90.8 fL (78-100); Mean Corpuscular Hemoglobin 29.5 pg (26-32); Mean Corpuscular Hgb Concent. 32.5 g/dL (32-36); Mean Platelet Volume 11.7 fL (7.5-11.0); Monocyte (Absolute #) 0.56 x10^3/uL (0.0-1.3); Monocytes % 9.2 % (0.0-12.0); Neutrophil % 59.4 % (36.0-66.0); Platelet Count 216 x10^3/uL (150-450); Red Blood Count 4.57 x10^6/uL (4.1-5.4); Red Cell Distribution Width 12.7 % (11.5-14.0); White Blood Count 6.1 x10^3/uL (4.0-10.5)
[2022-08-05 09:29] LABS: ALBUMIN 4.3 g/dL (3.5-5.0); ALKALINE PHOSPHATASE 67 U/L (38-126); ANION GAP 13.7 MEQ/L (5-15); BLOOD UREA NITROGEN 12 mg/dL (7-17); CHLORIDE 104 mmol/L (98-107); Calcium 9.2 mg/dL (8.4-10.2); Carbon Dioxide 29 mmol/L (22-30); Creatinine 1 0.86 mg/dL (0.52-1.04); EST GLOMERULAR FILTRATION RATE > 60.0 ML/MIN; Glucose 92 mg/dL (74-106); Potassium 4.1 mmol/L (3.5-5.1); SGOT/AST 21 U/L (14-36); SGPT/ALT 22 U/L (0-35); SODIUM 143 mmol/L (137-145); Total Protein 7.4 g/dL (6.3-8.2)
--- NOTE | 2022-08-05 09:55 | ERPHSYRPT ---
- History of Present Illness Time Seen by Provider: 08/05/22 08:20 Source: patient Exam Limitations: no limitations Patient Subjective Stated Complaint: pt here for being unsteady on feet, more tried than normal. she saw family yesterday and is to have an echo next solo [place], Triage Nursing Assessment: pt alert, resp easy, skin w/d/p, abd soft, no edema noted Physician History: Patient is a 32-year-old female with a history of lightheadedness presents to our ED with a 2-week history of lightheadedness. Patient's lightheadedness has been intermittent for the past 2 weeks. However over the past several days the lightheadedness has been constant. Patient states she feels unsteady on her feet although her gait is normal. Patient states she feels tired. Symptoms are mild to moderate in intensity. No specific worsening improving factors. Patient voices no other complaints concerns at this time. Portions of this note were created with voice recognition technology. There may be grammatical, spelling, punctuation or sound alike errors Timing/Duration: week(s) Severity: moderate Modifying Factors: Improves With: nothing Associated Symptoms: denies symptoms Allergies/Adverse Reactions: codeine Adverse Reaction (Mild, Verified 08/05/22 08:07) passed out/nauseated Home Medications: No Reportable Medications [No Reported Medications] 10/11/21 [History] Hx Tetanus, Diphtheria Vaccination/Date Given: No Hx Influenza Vaccination/Date Given: No Hx Pneumococcal Vaccination/Date Given: No Travel Risk - International Travel Have you traveled outside of the country in past 3 weeks: No - Coronavirus Screening Are you exhibiting any of the following symptoms?: No Close contact with a COVID-19 positive Pt in past 14-21 Days: No - Vaccine Status Have you recieved a Covid-19 vaccination: No - Review of Systems Constitutional: No Symptoms, No Fever, No Chills Eyes: No Symptoms Ears, Nose, & Throat: No Symptoms Respiratory: No Symptoms, No Cough, No Dyspnea Cardiac: No Symptoms, No Chest Pain, No Edema, No Syncope Abdominal/Gastrointestinal: No Symptoms, No Abdominal Pain, No Nausea, No Vomiting, No Diarrhea Genitourinary Symptoms: No Symptoms, No Dysuria Musculoskeletal: No Symptoms, No Back Pain, No Neck Pain Skin: No Symptoms, No Rash Neurological: No Symptoms, No Dizziness, No Focal Weakness, No Sensory Changes Psychological: No Symptoms Endocrine: No Symptoms Hematologic/Lymphatic: No Symptoms Immunological/Allergic: No Symptoms All Other Systems: Reviewed and Negative - Past Medical History Pertinent Past Medical History: Yes Neurological History: No Pertinent History ENT History: No Pertinent History Cardiac History: Other Respiratory History: No Pertinent History Endocrine Medical History: No Pertinent History Musculoskeletal History: No Pertinent History GI Medical History: No Pertinent History History: No Pertinent History Psycho-Social History: No Pertinent History Female Reproductive Disorders: No Pertinent History Other Medical History: cardiosyncope - Past Surgical History Past Surgical History: Yes Female Surgical History: Tubal Ligation - Social History Smoking Status: Current every day smoker How long have you smoked: 9 Exposure to second hand smoke: Yes Drug Use: none Patient Lives Alone: No - Female History Hx Last Menstrual Period: last week Hx Now: No - Nursing Vital Signs Nursing Vital Signs: Initial Vital Signs Temperature 97.2 F 08/05/22 08:12 Pulse Rate 91 H 08/05/22 08:12 Respiratory Rate 18 08/05/22 08:12 Blood Pressure 130/90 08/05/22 08:12 O2 Sat by Pulse Oximetry 99 08/05/22 08:12 Pain Scale Pain Intensity 0 - Physical Exam General Appearance: no apparent distress, alert Eye Exam: PERRL/EOMI, eyes nml inspection Ears, Nose, Throat Exam: normal ENT inspection, TMs normal, pharynx normal, moist mucous membranes Neck Exam: normal inspection, non-tender, supple, full range of motion Respiratory Exam: normal breath sounds, lungs clear, airway intact, No chest tenderness, No respiratory distress Cardiovascular Exam: regular rate/rhythm, normal heart sounds, normal peripheral pulses Gastrointestinal/Abdomen Exam: soft, normal bowel sounds, No tenderness, No mass Back Exam: normal inspection, normal range of motion, No CVA tenderness, No vertebral tenderness Extremity Exam: normal inspection, normal range of motion, pelvis stable Neurologic Exam: alert, oriented x 3, cooperative, normal mood/affect, nml cerebellar function, nml station & gait, sensation nml, other (No focal or lateralizing symptoms), No motor deficits, No slurred speech Skin Exam: normal color, warm, dry, No rash Lymphatic Exam: No adenopathy SpO2 Interpretation: normal SpO2: 97 O2 Delivery: Room Air - Course Nursing assessment & vital signs reviewed: Yes EKG Interpreted by Me: RATE (70), Sinus Rhythm, NORMAL AXIS, NORMAL INTERVALS - CT Exams Head CT Interpretation: Tele-radiologist Report (No acute intracranial pathology) Ordered Tests: Active Orders 24 hr Category Date Time Status Editor [employer] STAT Care 08/05/22 08:52 Active EKG-ER Only STAT Care 08/05/22 08:51 Active IV Insertion STAT Care 08/05/22 08:51 Active Pulse Oximetry (ED) STAT Care 08/05/22 08:51 Active HEAD WITHOUT CONTRAST [CT] Stat Exams 08/05/22 09:56 Completed CBC W DIFF Stat Lab 08/05/22 08:10 Completed CMP Stat Lab 08/05/22 08:10 Completed CULTURE,URINE Stat Lab 08/05/22 10:18 Received MAG [MAGNESIUM] Stat Lab 08/05/22 08:25 Completed TROPONIN Q4H Lab 08/05/22 08:10 Completed TROPONIN Q4H Lab 08/05/22 13:00 Ordered TROPONIN Q4H Lab 08/05/22 17:00 Ordered TSH [TSH, 3RD Generation] Stat Lab 08/05/22 08:25 Completed UA W/RFX UR CULTURE Stat Lab 08/05/22 10:18 Completed Holter Monitor ONCE RT 08/05/22 11:39 Ordered Medication Summary Discontinued Medications Generic Name Dose Route Start Last Admin Trade Name Cricket PRN Reason Stop Dose Admin Sodium Chloride 1,000 mls @ 999 mls/hr 08/05/22 08:51 08/05/22 10:54 Sodium Chloride 0.9% 1000 Ml IV 08/05/22 09:51 Infused .Q1H1M STA Infusion Sodium Chloride Confirm 08/05/22 09:01 Sodium Chloride 0.9% 1000 Ml Administered 08/05/22 09:02 Dose 1,000 mls @ ud .ROUTE .[facility] Lab/Rad Data: Laboratory Result Diagrams 08/05/22 08:10 08/05/22 08:10 Laboratory Results 08/05/22 08/05/22 08/05/22 Range/Units 10:18 08:25 08:25 WBC (4.0-10.5) x10^3/uL RBC (4.1-5.4) x10^6/uL Hgb (12.0-16.0) g/dL Hct (35-47) % MCV (78-100) fL MCH (26-32) pg MCHC (32-36) g/dL RDW (11.5-14.0) % Plt Count (150-450) x10^3/uL MPV (7.5-11.0) fL Gran % (36.0-66.0) % Immature Gran % (Auto) (0.00-0.4) % Nucleat RBC Rel Count (0.00-0.1) % Eos # (Auto) (0-0.5) x10^3/uL Immature Gran # (Auto) (0.00-0.03) x10^3u/L Absolute Lymphs (auto) (1.0-4.6) x10^3/uL Absolute Monos (auto) (0.0-1.3) x10^3/uL Absolute Nucleated RBC (0.00-0.01) x10^3u/L Lymphocytes % (24.0-44.0) % Monocytes % (0.0-12.0) % Eosinophils % (0.00-5.0) % Basophils % (0.0-0.4) % Absolute Granulocytes (1.4-6.9) x10^3/uL Basophils # (0-0.4) x10^3/uL Sodium (137-145) mmol/L Potassium (3.5-5.1) mmol/L Chloride (98-107) mmol/L Carbon Dioxide (22-30) mmol/L Anion Gap (5-15) MEQ/L BUN (7-17) mg/dL Creatinine (0.52-1.04) mg/dL Estimated GFR ML/MIN Glucose (74-106) mg/dL Calcium (8.4-10.2) mg/dL Magnesium 2.1 (1.6-2.3) mg/dL Total Bilirubin (0.2-1.3) mg/dL AST (14-36) U/L ALT (0-35) U/L Alkaline Phosphatase (38-126) U/L Troponin I (0.000-0.034) ng/mL Serum Total Protein (6.3-8.2) g/dL Albumin (3.5-5.0) g/dL TSH 3rd Generation 2.910 (0.47-4.68) mIU/L Urine Color Yellow (Yellow) Urine Appearance Clear (Clear) Urine pH 6.5 (4.6-8.0) Ur Specific [place] 1.010 (1.005-1.030) Urine Protein Negative (Negative) Urine Glucose (UA) Negative (Negative) mg/dL Urine Ketones Negative (Negative) Urine Blood Trace (Negative) Urine Nitrite Negative (Negative) Urine Bilirubin Negative (Negative) Urine Urobilinogen 0.2 (0.2) mg/dL Ur Leukocyte Esterase Trace A (Negative) U Hyaline Cast (Auto) NONE SEEN (0-2) /LPF Urine Microscopic RBC 0-2 (0-5) /HPF Urine Microscopic WBC 3-5 (0-5) /HPF Ur Epithelial Cells Few (None Seen) /HPF Urine Bacteria Few A (None Seen) /HPF Urine Culture Reflexed YES (NO) 08/05/22 08/05/22 08/05/22 Range/Units 08:10 08:10 08:10 WBC 6.1 (4.0-10.5) x10^3/uL RBC 4.57 (4.1-5.4) x10^6/uL Hgb 13.5 (12.0-16.0) g/dL Hct 41.5 (35-47) % MCV 90.8 (78-100) fL MCH 29.5 (26-32) pg MCHC 32.5 (32-36) g/dL RDW 12.7 (11.5-14.0) % Plt Count 216 (150-450) x10^3/uL MPV 11.7 H (7.5-11.0) fL Gran % 59.4 (36.0-66.0) % Immature Gran % (Auto) 0.3 (0.00-0.4) % Nucleat RBC Rel Count 0.0 (0.00-0.1) % Eos # (Auto) 0.24 (0-0.5) x10^3/uL Immature Gran # (Auto) 0.02 (0.00-0.03) x10^3u/L Absolute Lymphs (auto) 1.60 (1.0-4.6) x10^3/uL Absolute Monos (auto) 0.56 (0.0-1.3) x10^3/uL Absolute Nucleated RBC 0.00 (0.00-0.01) x10^3u/L Lymphocytes % 26.2 (24.0-44.0) % Monocytes % 9.2 (0.0-12.0) % Eosinophils % 3.9 (0.00-5.0) % Basophils % 1.0 (0.0-0.4) % Absolute Granulocytes 3.62 (1.4-6.9) x10^3/uL Basophils # 0.06 (0-0.4) x10^3/uL Sodium 143 (137-145) mmol/L Potassium 4.1 (3.5-5.1) mmol/L Chloride 104 (98-107) mmol/L Carbon Dioxide 29 (22-30) mmol/L Anion Gap 13.7 (5-15) MEQ/L BUN 12 (7-17) mg/dL Creatinine 0.86 (0.52-1.04) mg/dL Estimated GFR > 60.0 ML/MIN Glucose 92 (74-106) mg/dL Calcium 9.2 (8.4-10.2) mg/dL Magnesium (1.6-2.3) mg/dL Total Bilirubin 0.40 (0.2-1.3) mg/dL AST 21 (14-36) U/L ALT 22 (0-35) U/L Alkaline Phosphatase 67 (38-126) U/L Troponin I < 0.012 (0.000-0.034) ng/mL Serum Total Protein 7.4 (6.3-8.2) g/dL Albumin 4.3 (3.5-5.0) g/dL TSH 3rd Generation (0.47-4.68) mIU/L Urine Color (Yellow) Urine Appearance (Clear) Urine pH (4.6-8.0) Ur Specific [place] (1.005-1.030) Urine Protein (Negative) Urine Glucose (UA) (Negative) mg/dL Urine Ketones (Negative) Urine Blood (Negative) Urine Nitrite (Negative) Urine Bilirubin (Negative) Urine Urobilinogen (0.2) mg/dL Ur Leukocyte Esterase (Negative) U Hyaline Cast (Auto) (0-2) /LPF Urine Microscopic RBC (0-5) /HPF Urine Microscopic WBC (0-5) /HPF Ur Epithelial Cells (None Seen) /HPF Urine Bacteria (None Seen) /HPF Urine Culture Reflexed (NO) - Progress Progress: improved Progress Note: Patient 32-year-old female presents to our ED for 2-week history of lightheadedness. Patient states her symptoms are intermittent. Physical exam including neurologic exam was normal. Patient is walking with a normal gait. No focal or lateralizing symptoms. Patient's primary care doctor is currently working up patient's symptomology. Patient has a echocardiogram scheduled for next week Tuesday. Orthostatics were assessed in our ED today. Patient is negative for any concerning findings. No orthostasis observed. EKG normal sinus rhythm. CT head negative for acute intracranial pathology. CBC CMP are both normal. Magnesium normal. Troponin negative. Urinalysis negative. TSH negative. Patient received a bolus of normal saline. Patient reassessed. Patient is asymptomatic at the present time. It is unclear the source of patient's lightheadedness. However we will provide patient with a Holter monitor for further monitoring on an outpatient basis. Portions of this note were created with voice recognition technology. There may be grammatical, spelling, punctuation or sound alike errors Complexity of problems addressed is new diagnosis with uncertain prognosis. Complexity is moderate No critical care time. Complexity of data reviewed and analyzed is moderate. Testing ordered. Data reviewed. Patient served as independent historian. Dr. Cole independently reviewed the EKG. Holter monitor ordered for further diagnostic evaluation. Risk of complication and morbidity/mortality of patient management is low. Patient received IV fluids. No other medical management/medications administered. We observe patient ambulating from room to bathroom. Patient demonstrated normal steady gait. Orthostatic performed in our ED were also within normal limits. Please see nursing note for blood pressure values Plan of care determined based on shared decision making process. Time spent at discharge is approximately 15 minutes. 08/05/22 11:54 Counseled pt/family regarding: lab results, diagnosis, need for follow-up, rad results - Departure Departure Disposition: Home Clinical Impression: Lightheadedness Condition: Stable Critical Care Time: No Referrals: VALENCIA WILKES NP [Primary Care Provider] - Follow up/PCP as directed Additional Instructions: Discharge/Care Plan ISAAC JEREZ was seen on 08/05/22 in the Emergency Room. The patient was counseled regarding Diagnosis,Lab results, Imaging studies, need for follow up and when to return to the Emergency Room. Prescriptions given: Discharge Note I have spoken with the patient and/or caregivers. I have explained the patient's condition, diagnosis and treatment plan based on the information available to me at this time. I have answered the patient's and/or caregiver's questions and addressed any concerns. The patient and/or caregivers have as good understanding of the patient's diagnosis, condition and treatment plan as can be expected at this point. The vital signs have been stable. The patient's condition is stable and appropriate for discharge from the emergency department. The patient will pursue further outpatient evaluation with the primary care p hysician or other designated or consulting physician as outlined in the discharge instructions. The patient and/or caregivers are agreeable to this plan of care and follow-up instructions have been explained in detail. The patient and/or caregivers have received these instruction. The patient/and or caregivers are aware that any significant change in condition or worsening of symptoms should prompt an immediate return to this or the closest emergency department or call 911.
[2022-08-05 10:32] LABS: Appearance Clear (Clear); Bacteria Few /HPF (None Seen); Bilirubin Negative (Negative); Blood Trace (Negative); Epithelial Cells Few /HPF (None Seen); Glucose, Urine Negative (Negative); Hyaline Casts NONE SEEN /LPF (0-2); Ketones Negative (Negative); Leukocyte Esterase Trace (Negative); Nitrite Negative (Negative); Ph 6.5 (4.6-8.0); Protein,Urine Dip Negative (Negative); RBC 0-2 /HPF (0-5); Urobilinogen 0.2 mg/dL (0.2)
[2022-08-05 10:40] LABS: ADD URINE CULTURE? YES (NO)
--- NOTE | 2022-08-05 11:11 | XRAY ---
Indication: Lightheadedness. Multiple contiguous axial images obtained through the head without contrast. Comparison: May 25, 2013 Normal appearing brain parenchyma, ventricles, and bony calvarium. Visualized paranasal sinuses and mastoid air cells are clear. Impression: Continued normal CT head without contrast exam.
[2022-08-05 12:30] VITALS: BP 104/80; PULSE 64; O2SAT 95
== END 2022-08-05 12:28 | disposition home or self-care (01) ==
LOC: ED 07:55
DX: R42 Dizziness and giddiness (principal); Z28.310 Unvaccinated for COVID-19; Z72.0 Tobacco use
CPT/HCPCS: 36000; 36415; 70450; 80053; 81001; 83735; 84443; 84484; 85025; 87086; 93005; 93041; 94760; 96360; 99284

== ENCOUNTER 2023-07-08 08:33 | Emergency (ER) | payer BC ==
[2023-07-08 08:48] VITALS: TEMP 97.6
[2023-07-08 09:21] LABS: Absolute Neutrophil Ct (ANC) 4.55 x10^3/uL (1.4-6.9); BASOPHIL % 0.8 % (0.0-0.4); Basophil (Absolute #) 0.06 x10^3/uL (0-0.4); Eosinophil % 1.9 % (0.00-5.0); Eosinophil (Absolute #) 0.14 x10^3/uL (0-0.5); Hematocrit 40.5 % (35-47); Hemoglobin 13.5 g/dL (12.0-16.0); IMMATURE GRAN # 0.02 x10^3u/L (0.00-0.03); IMMATURE GRAN % 0.3 % (0.00-0.4); Lymphocyte (Absolute #) 1.92 x10^3/uL (1.0-4.6); Lymphocytes % 26.6 % (24.0-44.0); Mean Cell Volume 92.3 fL (78-100); Mean Corpuscular Hemoglobin 30.8 pg (26-32); Mean Corpuscular Hgb Concent. 33.3 g/dL (32-36); Mean Platelet Volume 11.5 fL (7.5-11.0); Monocyte (Absolute #) 0.52 x10^3/uL (0.0-1.3); Monocytes % 7.2 % (0.0-12.0); Neutrophil % 63.2 % (36.0-66.0); Platelet Count 186 x10^3/uL (150-450); Red Blood Count 4.39 x10^6/uL (4.1-5.4); Red Cell Distribution Width 12.3 % (11.5-14.0); White Blood Count 7.2 x10^3/uL (4.0-10.5)
[2023-07-08 09:32] LABS: Appearance Clear (Clear); Bacteria Rare /HPF (None Seen); Bilirubin Negative (Negative); Blood Negative (Negative); Epithelial Cells Moderate /HPF (None Seen); Glucose, Urine Negative (Negative); Hyaline Casts NONE SEEN /LPF (0-2); Ketones Negative (Negative); Leukocyte Esterase Negative (Negative); Nitrite Negative (Negative); Protein,Urine Dip Negative (Negative); Specific Gravity 1.025 (1.005-1.030); Urobilinogen 0.2 mg/dL (0.2)
[2023-07-08 09:34] LABS: ADD URINE CULTURE? NO (NO)
[2023-07-08 09:35] LABS: ALBUMIN 4.2 g/dL (3.5-5.0); ANION GAP 10.4 MEQ/L (5-15); BILIRUBIN,TOTAL 0.4 mg/dL (0.2-1.3); Calcium 9.3 mg/dL (8.4-10.2); Creatinine 1 0.83 mg/dL (0.52-1.04); Potassium 4.4 mmol/L (3.5-5.1); Total Protein 7.1 g/dL (6.3-8.2)
--- NOTE | 2023-07-08 10:54 | ERPHSYRPT ---
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 some nausea, no vomiting, no fever. Triage Nursing Assessment: pt alert, walked in, resp easy, skin w/d/p, abd soft, tender to touch, no edema noted, moves all ext well Physician History: Since about 5 hours ago pt started with RUQ/epigastric abdominal pain radiating to the right mid back with nausea; LBM was today & wnl. Pt denies vomiting, fever, chest pain, shortness of air, rash. Allergies/Adverse Reactions: codeine Adverse Reaction (Mild, Verified 07/08/23 09:41) passed out/nauseated Hx Tetanus, Diphtheria Vaccination/Date Given: No Hx Influenza Vaccination/Date Given: No Hx Pneumococcal Vaccination/Date Given: No Immunizations Up to Date: Yes Travel Risk - International Travel Have you traveled outside of the country in past 3 weeks: No - Coronavirus Screening Are you exhibiting any of the following symptoms?: No Close contact with a COVID-19 positive Pt in past 14-21 Days: No - Vaccine Status Have you recieved a Covid-19 vaccination: No - Review of Systems Constitutional: No Fever Respiratory: No Cough, No Dyspnea Cardiac: No Chest Pain Abdominal/Gastrointestinal: Abdominal Pain, Nausea, No Vomiting, No Diarrhea Skin: No Rash Neurological: No Headache - Past Medical History Pertinent Past Medical History: Yes Neurological History: No Pertinent History ENT History: No Pertinent History Cardiac History: Other Respiratory History: No Pertinent History Endocrine Medical History: No Pertinent History Musculoskeletal History: No Pertinent History GI Medical History: No Pertinent History History: No Pertinent History Psycho-Social History: No Pertinent History Female Reproductive Disorders: No Pertinent History Other Medical History: cardiosyncope - Past Surgical History Past Surgical History: Yes Female Surgical History: Tubal Ligation - Social History Smoking Status: Current every day smoker How long have you smoked: 9 Exposure to second hand smoke: Yes Drug Use: none Patient Lives Alone: No - Female History Hx Last Menstrual Period: 2 weeks ago Hx Now: No - Nursing Vital Signs Nursing Vital Signs: Initial Vital Signs Temperature 97.6 F 07/08/23 08:47 Pulse Rate 77 07/08/23 08:47 Respiratory Rate 18 07/08/23 08:47 Blood Pressure 161/100 07/08/23 08:47 O2 Sat by Pulse Oximetry 99 07/08/23 08:47 Pain Scale Pain Intensity 0 - Physical Exam General Appearance: alert Eye Exam: PERRL/EOMI Ears, Nose, Throat Exam: TMs normal, pharynx normal Neck Exam: normal inspection Respiratory Exam: normal breath sounds Cardiovascular Exam: normal heart sounds Gastrointestinal/Abdomen Exam: soft, normal bowel sounds, tenderness (upper quadrants - mild) Back Exam: normal inspection Extremity Exam: No pedal edema Neurologic Exam: alert, cooperative Skin Exam: warm, dry SpO2 Interpretation: normal SpO2: 99 O2 Delivery: Room Air - Course Nursing assessment & vital signs reviewed: Yes EKG Interpreted by Me: RATE (64), Sinus Rhythm, NORMAL AXIS, Other (QTc = 433) - CT Exams Abdomen/Pelvis CT Interpretation: Tele-radiologist Report (Colonic diverticulosis without diverticulitis. Dominant follicle in right ovary.) - Radiology Ultrasound Exam Gallbladder Ultrasound: Other (tech report: negative gallbladder) Abdomen Ultrasound: Other (tech report: 2.3 cm cyst on right ovary; no torsion & good blood flow.) Ordered Tests: Active Orders 24 hr Category Date Time Status EKG-ER Only STAT Care 07/08/23 14:38 Active IV Insertion STAT Care 07/08/23 10:54 Active ABDOMEN AND PELVIS W/0 CONTRAS [CT] Stat Exams 07/08/23 10:55 Completed GALLBLADDER [US] Stat Exams 07/08/23 12:27 Taken PELVIS TRANS VAGINAL [US] Stat Exams 07/08/23 14:40 Taken CBC W DIFF Stat Lab 07/08/23 09:00 Completed CMP Stat Lab 07/08/23 09:00 Completed HCG QUALITATIVE, SERUM Stat Lab 07/08/23 08:00 Completed TROPONIN Q4H Lab 07/08/23 14:45 Completed TROPONIN Q4H Lab 07/08/23 18:45 Ordered TROPONIN Q4H Lab 07/08/23 22:45 Ordered UA W/RFX UR CULTURE Stat Lab 07/08/23 09:00 Completed Medication Summary Generic Name Dose Route Start Last Admin Trade Name Freq PRN Reason Stop Dose Admin Sodium Chloride 1,000 mls @ 100 mls/hr 07/08/23 11:00 07/08/23 11:52 Sodium Chloride 0.9% 1000 Ml IV 08/07/23 10:59 100 mls/hr .Q10H AEDN Administration Discontinued Medications Generic Name Dose Route Start Last Admin Trade Name Cricket PRN Reason Stop Dose Admin Ketorolac Tromethamine 30 mg 07/08/23 12:23 07/08/23 12:32 Ketorolac Tromethamine 30 Mg/Ml Inj IV 07/08/23 12:24 30 mg STAT ONE Administration Ketorolac Tromethamine Confirm 07/08/23 12:27 Ketorolac Tromethamine 30 Mg/Ml Inj Administered 07/08/23 12:28 Dose 30 mg .ROUTE .STK-MED ONE Morphine Sulfate 2 mg 07/08/23 10:54 07/08/23 11:54 Morphine Sulfate 2 Mg/Ml Inj IV 07/08/23 10:55 Not Given STAT ONE Morphine Sulfate Confirm 07/08/23 11:49 Morphine Sulfate 4 Mg/Ml Injection Administered 07/08/23 11:50 Dose 4 mg .ROUTE .STK-MED ONE Ondansetron HCl 4 mg 07/08/23 10:54 07/08/23 11:52 Ondansetron Hcl 4 Mg/2 Ml Vial IV 07/08/23 10:55 4 mg STAT ONE Administration Ondansetron HCl Confirm 07/08/23 11:49 Ondansetron Hcl 4 Mg/2 Ml Vial Administered 07/08/23 11:50 Dose 4 mg .ROUTE .STK-MED ONE Lab/Rad Data: Laboratory Result Diagrams 07/08/23 09:00 07/08/23 09:00 Laboratory Results 07/08/23 07/08/23 07/08/23 Range/Units 14:45 09:00 09:00 WBC 7.2 (4.0-10.5) x10^3/uL RBC 4.39 (4.1-5.4) x10^6/uL Hgb 13.5 (12.0-16.0) g/dL Hct 40.5 (35-47) % MCV 92.3 (78-100) fL MCH 30.8 (26-32) pg MCHC 33.3 (32-36) g/dL RDW 12.3 (11.5-14.0) % Plt Count 186 (150-450) x10^3/uL MPV 11.5 H (7.5-11.0) fL Gran % 63.2 (36.0-66.0) % Immature Gran % (Auto) 0.3 (0.00-0.4) % Nucleat RBC Rel Count 0.0 (0.00-0.1) % Eos # (Auto) 0.14 (0-0.5) x10^3/uL Immature Gran # (Auto) 0.02 (0.00-0.03) x10^3u/L Absolute Lymphs (auto) 1.92 (1.0-4.6) x10^3/uL Absolute Monos (auto) 0.52 (0.0-1.3) x10^3/uL Absolute Nucleated RBC 0.00 (0.00-0.01) x10^3u/L Lymphocytes % 26.6 (24.0-44.0) % Monocytes % 7.2 (0.0-12.0) % Eosinophils % 1.9 (0.00-5.0) % Basophils % 0.8 (0.0-0.4) % Absolute Granulocytes 4.55 (1.4-6.9) x10^3/uL Basophils # 0.06 (0-0.4) x10^3/uL Sodium 138 (137-145) mmol/L Potassium 4.4 (3.5-5.1) mmol/L Chloride 108 H (98-107) mmol/L Carbon Dioxide 24 (22-30) mmol/L Anion Gap 10.4 (5-15) MEQ/L BUN 14 (7-17) mg/dL Creatinine 0.83 (0.52-1.04) mg/dL Estimated GFR 96.0 ML/MIN Glucose 99 (74-106) mg/dL Calcium 9.3 (8.4-10.2) mg/dL Total Bilirubin 0.40 (0.2-1.3) mg/dL AST 16 (14-36) U/L ALT 17 (0-35) U/L Alkaline Phosphatase 58 (38-126) U/L Troponin I < 0.012 (0.000-0.034) ng/mL Serum Total Protein 7.1 (6.3-8.2) g/dL Albumin 4.2 (3.5-5.0) g/dL Serum HCG, Qual (NEGATIVE) Urine Color (Yellow) Urine Appearance (Clear) Urine pH (4.6-8.0) Ur Specific [place] (1.005-1.030) Urine Protein (Negative) Urine Glucose (UA) (Negative) mg/dL Urine Ketones (Negative) Urine Blood (Negative) Urine Nitrite (Negative) Urine Bilirubin (Negative) Urine Urobilinogen (0.2) mg/dL Ur Leukocyte Esterase (Negative) U Hyaline Cast (Auto) (0-2) /LPF Urine Microscopic RBC (0-5) /HPF Urine Microscopic WBC (0-5) /HPF Ur Epithelial Cells (None Seen) /HPF Urine Bacteria (None Seen) /HPF Urine Culture Reflexed (NO) 07/08/23 07/08/23 Range/Units 09:00 08:00 WBC (4.0-10.5) x10^3/uL RBC (4.1-5.4) x10^6/uL Hgb (12.0-16.0) g/dL Hct (35-47) % MCV (78-100) fL MCH (26-32) pg MCHC (32-36) g/dL RDW (11.5-14.0) % Plt Count (150-450) x10^3/uL MPV (7.5-11.0) fL Gran % (36.0-66.0) % Immature Gran % (Auto) (0.00-0.4) % Nucleat RBC Rel Count (0.00-0.1) % Eos # (Auto) (0-0.5) x10^3/uL Immature Gran # (Auto) (0.00-0.03) x10^3u/L Absolute Lymphs (auto) (1.0-4.6) x10^3/uL Absolute Monos (auto) (0.0-1.3) x10^3/uL Absolute Nucleated RBC (0.00-0.01) x10^3u/L Lymphocytes % (24.0-44.0) % Monocytes % (0.0-12.0) % Eosinophils % (0.00-5.0) % Basophils % (0.0-0.4) % Absolute Granulocytes (1.4-6.9) x10^3/uL Basophils # (0-0.4) x10^3/uL Sodium (137-145) mmol/L Potassium (3.5-5.1) mmol/L Chloride (98-107) mmol/L Carbon Dioxide (22-30) mmol/L Anion Gap (5-15) MEQ/L BUN (7-17) mg/dL Creatinine (0.52-1.04) mg/dL Estimated GFR ML/MIN Glucose (74-106) mg/dL Calcium (8.4-10.2) mg/dL Total Bilirubin (0.2-1.3) mg/dL AST (14-36) U/L ALT (0-35) U/L Alkaline Phosphatase (38-126) U/L Troponin I (0.000-0.034) ng/mL Serum Total Protein (6.3-8.2) g/dL Albumin (3.5-5.0) g/dL Serum HCG, Qual NEGATIVE (NEGATIVE) Urine Color Yellow (Yellow) Urine Appearance Clear (Clear) Urine pH 5.0 (4.6-8.0) Ur Specific [place] 1.025 (1.005-1.030) Urine Protein Negative (Negative) Urine Glucose (UA) Negative (Negative) mg/dL Urine Ketones Negative (Negative) Urine Blood Negative (Negative) Urine Nitrite Negative (Negative) Urine Bilirubin Negative (Negative) Urine Urobilinogen 0.2 (0.2) mg/dL Ur Leukocyte Esterase Negative (Negative) U Hyaline Cast (Auto) NONE SEEN (0-2) /LPF Urine Microscopic RBC 3-5 (0-5) /HPF Urine Microscopic WBC 6-10 A (0-5) /HPF Ur Epithelial Cells Moderate A (None Seen) /HPF Urine Bacteria Rare A (None Seen) /HPF Urine Culture Reflexed NO (NO) - Progress Counseled pt/family regarding: lab results, diagnosis, rad results Medical Desision Making - Diagnostic Testing Diagnostic test were ordered, analyzed, and reviewed by me: Yes Radiological Interpretation: Teleradiologist Report - Departure Departure Disposition: Home Clinical Impression: Abdominal pain, Right ovarian cyst Condition: Stable Critical Care Time: No Referrals: VALENCIA WILKES NP [Primary Care Provider] - Follow up/PCP as directed Instructions: Severe Abdominal Pain, Adult (DC) Additional Instructions: Follow up with private doctor tomorrow. Forms: Work/School Release Form Prescriptions: Ondansetron ODT 4 MG [Zofran Odt 4 mg] 4 mg PO Q6H PRN PRN #10 tablet PRN Reason: Nausea
[2023-07-08 11:12] LABS: HCG SERUM TEST NEGATIVE (NEGATIVE)
[2023-07-08] MEDS ORDERED: Zofran 4 MG/2 ML VIAL ONE (11:49)
[2023-07-08] MEDS ORDERED: Sodium Chloride 0.9% 1000 ML 1,000 ML ONE (11:49)
[2023-07-08] MEDS ORDERED: MORPHINE SULFATE 4 MG INJ ONE (11:49)
[2023-07-08] MEDS: Sodium Chloride 0.9% 1000 ML 1,000 ML IV SCH (11:52)
[2023-07-08] MEDS: Zofran 4 MG/2 ML VIAL IV ONE (11:52)
[2023-07-08] MEDS: MORPHINE SULFATE 2 MG INJ IV ONE (11:54)
--- NOTE | 2023-07-08 12:17 | XRAY ---
CLINICAL HISTORY: pain TECHNIQUE: CT of the abdomen and pelvis was performed with axial images as well as sagittal and coronal reconstruction images without intravenous contrast. COMPARISON: CT images 10/16/2014 FINDINGS: Visualized lung bases appear unremarkable. The heart size is within normal limits. The liver is normal in size, and morphology and appears unremarkable with no intrahepatic or extrahepatic bile duct dilation. Unremarkable appearing gallbladder with no stone wall thickening or pericholecystic inflammatory changes or fluid. Unremarkable appearing pancreas. No pancreatic mass or ductal dilatation is seen. Unremarkable appearing spleen. Small splenule is noted jerry-laterally. The adrenal glands are normal. The kidneys appear unremarkable with no cysts masses or hydronephrosis. The ureters are normal with no stones. Unremarkable abdominal aorta without specific evidence of aneurysm or dissection. IVC is normal. The stomach appears unremarkable. Unremarkable appearing duodenum. Small Bowel are non-distended with no abnormality. Multiple diverticular outpouchings are seen in the large bowel without diverticulitis. No free air and no ascites. No free intraperitoneal air is seen. The appendix appears unremarkable. The bladder is unremarkable with no stones. The uterus appears unremarkable with a small follicle in the right ovary measuring 1.0x0.9cm. Mild degenerative changes in the spine. IMPRESSION: Colonic diverticulosis without diverticulitisis. Dominant follicle in right ovary. Electronically Signed by: Juan Miguel Siegel MD. (07/08/2023 12:12:07 EST)
[2023-07-08] MEDS ORDERED: TORAdol 30 mg Injection ONE (12:27)
[2023-07-08] MEDS: TORAdol 30 mg Injection IV ONE (12:32)
[2023-07-08 15:36] VITALS: BP 138/87; PULSE 60; RESP 17
[2023-07-08 16:20] VITALS: O2SAT 99
--- NOTE | 2023-07-08 17:45 | XRAY ---
Indication: Right upper quadrant/epigastric pain. Two-dimensional gallbladder sonogram performed. Comparison: June 03, 2014 Pancreas not well seen due to overlying bowel gas. Visualized gallbladder, liver, and right kidney are sonographically unremarkable. Common bile duct measures 3.4 mm. No intrahepatic biliary distention. Right kidney measures 10.2 x 3.9 x 5.1 cm. Impression: Nonvisualization pancreas. Remaining gallbladder sonogram is again negative.
--- NOTE | 2023-07-08 17:53 | XRAY ---
Indication: Right ovary cyst. Two-dimensional transvaginal pelvic sonogram performed. Comparison: June 03, 2014 Uterus again anteverted measuring 8.7 x 4.1 x 4.7 cm. No focal solid/cystic uterine mass. Endometrial stripe measures 1.5 mm. No endometrial cavity mass or fluid collection. Right ovary measures 2.5 x 2.6 x 3.4 cm and demonstrates normal perfusion. Also new 2.3 x 1.7 x 1.6 cm right ovary simple cyst. Nonvisualization left ovary. No suspicious solid adnexal mass or free fluid. Impression: New dominant right ovary cyst. Nonvisualization left ovary. Remaining transvaginal pelvic sonogram is negative.
== END 2023-07-08 16:31 | disposition home or self-care (01) ==
LOC: ED 08:33
DX: R10.11 Right upper quadrant pain (principal); N83.201 Unspecified ovarian cyst, right side; R10.13 Epigastric pain; R11.0 Nausea; Z28.310 Unvaccinated for COVID-19; Z72.0 Tobacco use
CPT/HCPCS: 36000; 36415; 74176; 76705; 76830; 80053; 81001; 84484; 84703; 85025; 93005; 96374; 96375; 99284; J1885; J2270; J2405

== ENCOUNTER 2024-02-29 13:00 | Emergency (ER) | payer BC ==
[2024-02-29 13:22] VITALS: TEMP 98
--- NOTE | 2024-02-29 13:40 | ERPHSYRPT ---
- History of Present Illness Time Seen by Provider: 02/29/24 13:03 Source: patient Exam Limitations: no limitations Patient Subjective Stated Complaint: C/O hypoglycemia today. Patient indicates that her monitor went off around 11am indicating her blood glucose was in the 40s. Patient states she drank a coke and a yoohoo and ate 2 slices of pizza. Patient didn't skip breakfast today; ate banana and cereal for breakfast prior to incident. Patient states she took her first dose of ozempic on 02/27/24. Triage Nursing Assessment: Patient ambulated back to ER without difficulties. She is alert and oriented. She is anxious. No SOB. SKin tone normal. Blood glucose per ER glucometer is 104 upon arrival to ER. Patient given a 4oz glass of OJ per her request. Physician History: 34 years old female with history of insulin resistance, obesity started on Ozempic 2 days ago presented in the ER with low blood sugar in 40s around 11 AM. Patient reports feeling weak all over, dizzy lightheaded and her monitor was alarming low blood glucose. She managed to have some coke and other drinks and it improved to 180s but on presentation again in the ER is in low 100s. Denies any associated nausea vomiting or diarrhea. No fever or chills reported. Allergies/Adverse Reactions: codeine Adverse Reaction (Mild, Verified 02/29/24 13:11) passed out/nauseated Home Medications: Semaglutide [Ozempic] 0.25 mg SQ WEEKLY 02/29/24 [History] Hx Tetanus, Diphtheria Vaccination/Date Given: Yes Hx Influenza Vaccination/Date Given: No Hx Pneumococcal Vaccination/Date Given: No Immunizations Up to Date: Yes Travel Risk - International Travel Have you traveled outside of the country in past 3 weeks: No - Emerging Infectious Disease Are you exhibiting symptoms associated with any current EIDs: No - Review of Systems Constitutional: Fatigue, Weakness Eyes: No Symptoms Ears, Nose, & Throat: No Symptoms Respiratory: No Symptoms Cardiac: No Symptoms Abdominal/Gastrointestinal: No Symptoms Genitourinary Symptoms: No Symptoms Musculoskeletal: No Symptoms Skin: No Symptoms Neurological: Dizziness Endocrine: No Symptoms Hematologic/Lymphatic: No Symptoms Immunological/Allergic: No Symptoms - Past Medical History Pertinent Past Medical History: Yes Neurological History: No Pertinent History ENT History: No Pertinent History Cardiac History: Other Respiratory History: No Pertinent History Endocrine Medical History: No Pertinent History Musculoskeletal History: No Pertinent History GI Medical History: No Pertinent History History: No Pertinent History Psycho-Social History: No Pertinent History Female Reproductive Disorders: No Pertinent History Other Medical History: cardiosyncope, started on ozempic by Dr. Connors on 02/27/24. - Past Surgical History Past Surgical History: Yes Female Surgical History: Tubal Ligation - Female History Hx Last Menstrual Period: Last month Hx Now: No (tubal) - Social History Smoking Status: Current every day smoker How long have you smoked: 9 Exposure to second hand smoke: Yes Drug Use: none Patient Lives Alone: No - Social Determinants of Health Will the patient participate in the screening: Declined to provide - Nursing Vital Signs Nursing Vital Signs: Initial Vital Signs Blood Pressure 97/74 02/29/24 13:09 O2 Sat by Pulse Oximetry 98 02/29/24 13:09 Pain Scale Pain Intensity 0 - Physical Exam General Appearance: no apparent distress, alert Eye Exam: PERRL/EOMI Ears, Nose, Throat Exam: normal ENT inspection Neck Exam: normal inspection, full range of motion Respiratory Exam: normal breath sounds, lungs clear Cardiovascular Exam: regular rate/rhythm, normal heart sounds Gastrointestinal/Abdomen Exam: soft, normal bowel sounds, No tenderness Back Exam: normal inspection, normal range of motion Extremity Exam: normal inspection, normal range of motion Neurologic Exam: alert, oriented x 3, cooperative, 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, nml cerebellar function, nml station & gait, sensation nml, No normal mood/affect (Anxious), No motor deficits Skin Exam: normal color SpO2 Interpretation: normal SpO2: 99 O2 Delivery: Room Air Ordered Tests: Active Orders 24 hr Category Date Time Status CBC W DIFF Stat Lab 02/29/24 14:08 Completed CMP Stat Lab 02/29/24 14:08 Completed HCG QUALITATIVE, URINE Stat Lab 02/29/24 14:39 Completed LIPASE Stat Lab 02/29/24 14:08 Completed POCT GLUCOSE Stat Lab 02/29/24 13:06 Completed POCT GLUCOSE Stat Lab 02/29/24 13:06 Received POCT GLUCOSE Stat Lab 02/29/24 14:43 Received POCT GLUCOSE Stat Lab 02/29/24 14:44 Completed UA W/RFX UR CULTURE Stat Lab 02/29/24 14:39 Completed Lab/Rad Data: Laboratory Result Diagrams 02/29/24 14:08 02/29/24 14:08 Laboratory Results 02/29/24 02/29/24 02/29/24 Range/Units 14:44 14:39 14:39 WBC (3.98-10.04) x10^3/uL RBC (3.93-5.22) x10^6/uL Hgb (11.2-15.7) g/dL Hct (34.1-44.9) % MCV (79.4-94.8) fL MCH (25.6-32.2) pg MCHC (32.2-35.5) g/dL RDW (11.7-14.4) % Plt Count (182-369) x10^3/uL MPV (9.4-12.3) fL Gran % (34.0-71.1) % Immature Gran % (Auto) (0.001-0.429) % Nucleat RBC Rel Count (0.00-0.2) % Eos # (Auto) (0.04-0.36) x10^3/uL Immature Gran # (Auto) (0.001-0.031) x10^3u/L Absolute Lymphs (auto) (1.18-3.74) x10^3/uL Absolute Monos (auto) (0.24-0.86) x10^3/uL Absolute Nucleated RBC (0.00-0.012) x10^3u/L Lymphocytes % (19.3-51.7) % Monocytes % (4.7-12.5) % Eosinophils % (0.7-5.8) % Basophils % (0.1-1.2) % Absolute Granulocytes (1.56-6.13) x10^3/uL Basophils # (0.01-0.08) x10^3/uL Sodium (135-145) mmol/L Potassium (3.5-5.1) mmol/L Chloride (98-107) mmol/L Carbon Dioxide (22-30) mmol/L Anion Gap (5-15) MEQ/L BUN (7-17) mg/dL Creatinine (0.52-1.04) mg/dL Estimated GFR ML/MIN Glucose (74-106) mg/dL POC Glucometer 116 H (74 to 106) mg/dL Calcium (8.4-10.2) mg/dL Total Bilirubin (0.2-1.3) mg/dL AST (14-36) U/L ALT (0-35) U/L Alkaline Phosphatase (38-126) U/L Serum Total Protein (6.3-8.2) g/dL Albumin (3.5-5.0) g/dL Lipase (23-300) U/L Urine Color Yellow (Yellow) Urine Appearance Clear (Clear) Urine pH 6.5 (4.6-8.0) Ur Specific [place] <=1.005 (1.005-1.030) Urine Protein Negative (Negative) Urine Glucose (UA) Negative (Negative) mg/dL Urine Ketones Negative (Negative) Urine Blood Negative (Negative) Urine Nitrite Negative (Negative) Urine Bilirubin Negative (Negative) Urine Urobilinogen 0.2 (0.2) mg/dL Ur Leukocyte Esterase Negative (Negative) U Hyaline Cast (Auto) NONE SEEN (0-2) /LPF Urine Microscopic RBC 0-2 (0-5) /HPF Urine Microscopic WBC 0-2 (0-5) /HPF Ur Epithelial Cells None Seen (None Seen) /HPF Urine Bacteria None Seen (None Seen) /HPF Urine Culture Reflexed NO (NO) Urine HCG, Qual NEGATIVE (NEGATIVE) 02/29/24 02/29/24 02/29/24 Range/Units 14:08 14:08 13:06 WBC 8.5 (3.98-10.04) x10^3/uL RBC 4.61 (3.93-5.22) x10^6/uL Hgb 13.8 (11.2-15.7) g/dL Hct 41.4 (34.1-44.9) % MCV 89.8 (79.4-94.8) fL MCH 29.9 (25.6-32.2) pg MCHC 33.3 (32.2-35.5) g/dL RDW 12.9 (11.7-14.4) % Plt Count 223 (182-369) x10^3/uL MPV 11.6 (9.4-12.3) fL Gran % 75.5 H (34.0-71.1) % Immature Gran % (Auto) 0.2 (0.001-0.429) % Nucleat RBC Rel Count 0.0 (0.00-0.2) % Eos # (Auto) 0.14 (0.04-0.36) x10^3/uL Immature Gran # (Auto) 0.02 (0.001-0.031) x10^3u/L Absolute Lymphs (auto) 1.34 (1.18-3.74) x10^3/uL Absolute Monos (auto) 0.53 (0.24-0.86) x10^3/uL Absolute Nucleated RBC 0.00 (0.00-0.012) x10^3u/L Lymphocytes % 15.8 L (19.3-51.7) % Monocytes % 6.3 (4.7-12.5) % Eosinophils % 1.7 (0.7-5.8) % Basophils % 0.5 (0.1-1.2) % Absolute Granulocytes 6.40 H (1.56-6.13) x10^3/uL Basophils # 0.04 (0.01-0.08) x10^3/uL Sodium 143 (135-145) mmol/L Potassium 4.4 (3.5-5.1) mmol/L Chloride 108 H (98-107) mmol/L Carbon Dioxide 24 (22-30) mmol/L Anion Gap 15.3 H (5-15) MEQ/L BUN 11 (7-17) mg/dL Creatinine 0.97 (0.52-1.04) mg/dL Estimated GFR 79.1 ML/MIN Glucose 116 H (74-106) mg/dL POC Glucometer 104 (74 to 106) mg/dL Calcium 9.8 (8.4-10.2) mg/dL Total Bilirubin 0.40 (0.2-1.3) mg/dL AST 21 (14-36) U/L ALT 21 (0-35) U/L Alkaline Phosphatase 51 (38-126) U/L Serum Total Protein 7.8 (6.3-8.2) g/dL Albumin 4.5 (3.5-5.0) g/dL Lipase 48 (23-300) U/L Urine Color (Yellow) Urine Appearance (Clear) Urine pH (4.6-8.0) Ur Specific [place] (1.005-1.030) Urine Protein (Negative) Urine Glucose (UA) (Negative) mg/dL Urine Ketones (Negative) Urine Blood (Negative) Urine Nitrite (Negative) Urine Bilirubin (Negative) Urine Urobilinogen (0.2) mg/dL Ur Leukocyte Esterase (Negative) U Hyaline Cast (Auto) (0-2) /LPF Urine Microscopic RBC (0-5) /HPF Urine Microscopic WBC (0-5) /HPF Ur Epithelial Cells (None Seen) /HPF Urine Bacteria (None Seen) /HPF Urine Culture Reflexed (NO) Urine HCG, Qual (NEGATIVE) - Progress Progress: improved Progress Note: 02/29/24 15:53 34 years old with insulin resistance, newly diagnosed diabetic on Ozempic with insulin resistance, newly diagnosed diabetic on Ozempic started 2 days ago is evaluated in the ER for hypoglycemia where her blood sugars dropping in 40s with symptoms of hypoglycemia. It improved with oral intake prior to arrival. Jeremy carrizales remained asymptomatic throughout her stay in the ER. Workup showed normal white count, glucose of 116. No UTI. I believe patient's low glucose is secondary to decreasing insulin resistance from recent use of Ozempic. Recommended keeping sugar drinks and candies with her all the time to avoid hypoglycemia and talk to her primary endocrinology tomorrow for reevaluation and not to take the next injection until approved by him. Discussed signs symptoms of worsening needing return to ER which she seems understanding. Stable for discharge. Counseled pt/family regarding: lab results, diagnosis, need for follow-up Medical Desision Making - Diagnostic Testing Diagnostic test were ordered, analyzed, and reviewed by me: Yes - Departure Departure Disposition: Home Clinical Impression: Hypoglycemic episode in patient with diabetes mellitus Condition: Stable Critical Care Time: No Referrals: VALENCIA WILKES NP [Primary Care Provider] - Follow up with PCP 1 day Instructions: Low Blood Sugar, Adult (DC) Additional Instructions: Keep the glucose tablets/drinks containing glucose with you all the time to take it as needed for hypoglycemia. Talk to your heel brusher before having next injection. Return to ER for having recurrent hypoglycemia or if having nausea vomiting diarrhea etc.
[2024-02-29 14:14] LABS: BASOPHIL % 0.5 % (0.1-1.2); Basophil (Absolute #) 0.04 x10^3/uL (0.01-0.08); Eosinophil % 1.7 % (0.7-5.8); Eosinophil (Absolute #) 0.14 x10^3/uL (0.04-0.36); Hematocrit 41.4 % (34.1-44.9); Hemoglobin 13.8 g/dL (11.2-15.7); IMMATURE GRAN # 0.02 x10^3u/L (0.001-0.031); IMMATURE GRAN % 0.2 % (0.001-0.429); Lymphocyte (Absolute #) 1.34 x10^3/uL (1.18-3.74); Lymphocytes % 15.8 % (19.3-51.7); Mean Cell Volume 89.8 fL (79.4-94.8); Mean Corpuscular Hemoglobin 29.9 pg (25.6-32.2); Mean Corpuscular Hgb Concent. 33.3 g/dL (32.2-35.5); Mean Platelet Volume 11.6 fL (9.4-12.3); Monocyte (Absolute #) 0.53 x10^3/uL (0.24-0.86); Monocytes % 6.3 % (4.7-12.5); Neutrophil % 75.5 % (34.0-71.1); Platelet Count 223 x10^3/uL (182-369); Red Blood Count 4.61 x10^6/uL (3.93-5.22); Red Cell Distribution Width 12.9 % (11.7-14.4); White Blood Count 8.5 x10^3/uL (3.98-10.04)
[2024-02-29 14:26] LABS: ALBUMIN 4.5 g/dL (3.5-5.0); ANION GAP 15.3 MEQ/L (5-15); BILIRUBIN,TOTAL 0.4 mg/dL (0.2-1.3); Calcium 9.8 mg/dL (8.4-10.2); Creatinine 1 0.97 mg/dL (0.52-1.04); EST GLOMERULAR FILTRATION RATE 79.1 ML/MIN; Potassium 4.4 mmol/L (3.5-5.1); Total Protein 7.8 g/dL (6.3-8.2)
[2024-02-29 14:46] VITALS: BP 107/61; PULSE 80; RESP 16
[2024-02-29 15:03] LABS: HCG URINE TEST NEGATIVE (NEGATIVE)
[2024-02-29 15:09] LABS: Appearance Clear (Clear); Bacteria None Seen /HPF (None Seen); Bilirubin Negative (Negative); Blood Negative (Negative); Epithelial Cells None Seen /HPF (None Seen); Glucose, Urine Negative (Negative); Hyaline Casts NONE SEEN /LPF (0-2); Ketones Negative (Negative); Leukocyte Esterase Negative (Negative); Nitrite Negative (Negative); Ph 6.5 (4.6-8.0); Protein,Urine Dip Negative (Negative); RBC 0-2 /HPF (0-5); Specific Gravity <=1.005 (1.005-1.030); Urobilinogen 0.2 mg/dL (0.2); WBC 0-2 /HPF (0-5)
[2024-02-29 15:46] VITALS: O2SAT 99
== END 2024-02-29 16:00 | disposition home or self-care (01) ==
LOC: ED 13:00
DX: E11.649 Type 2 diabetes mellitus with hypoglycemia without coma (principal); R53.1 Weakness; R42 Dizziness and giddiness; Z79.85 Long-term (current) use of injectable non-insulin antidiabetic drugs; Z72.0 Tobacco use
CPT/HCPCS: 36415; 80053; 81001; 81025; 82947; 83690; 85025; 99283

== ENCOUNTER 2025-04-17 23:59 | Emergency (ER) | payer BC ==
[2025-04-18 00:21] VITALS: RESP 18; TEMP 96
[2025-04-18 00:25] LABS: BASOPHIL % 0.5 % (0.1-1.2); Basophil (Absolute #) 0.05 x10^3/uL (0.01-0.08); Eosinophil (Absolute #) 0.10 x10^3/uL (0.04-0.36); Hematocrit 43.9 % (34.1-44.9); Hemoglobin 14.6 g/dL (11.2-15.7); IMMATURE GRAN # 0.02 x10^3u/L (0.001-0.031); IMMATURE GRAN % 0.2 % (0.001-0.429); Lymphocyte (Absolute #) 0.78 x10^3/uL (1.18-3.74); Mean Corpuscular Hemoglobin 29.9 pg (25.6-32.2); Mean Corpuscular Hgb Concent. 33.3 g/dL (32.2-35.5); Monocyte (Absolute #) 0.51 x10^3/uL (0.24-0.86); NUCLEATED RBC # 0.00 x10^3u/L (0.00-0.012); NUCLEATED RBC % 0.0 % (0.00-0.2); Platelet Count 233 x10^3/uL (182-369); Red Blood Count 4.89 x10^6/uL (3.93-5.22); White Blood Count 9.5 x10^3/uL (3.98-10.04)
--- NOTE | 2025-04-18 00:25 | ERPHSYRPT ---
- History of Present Illness Time Seen by Provider: 04/18/25 00:21 Historian: patient Exam Limitations: no limitations Patient Subjective Stated Complaint: pt states that she began to vomit, have abd pain, and diarrhea today Triage Nursing Assessment: pt ambulated into the er; pt is axo x4; c/o vomiting; pt states 5/10 pain to epigastric region; abd is round, soft, tender; active bowel sounds in all quads; c/o N/V/D; mucus membranes pink and moist; skin PDW; no respiratory distress present; vitals wnl Physician History: 35-year-old female history of anxiety presents to our ED for evaluation of nausea vomiting abdominal pain and diarrhea. Symptoms started today. Abdominal pain is periumbilical. No associated chest pain or shortness of breath. No trauma. Patient rates her pain 5 out of 10. Patient otherwise feels well. She voices no other complaints or concerns at this time. Portions of this note were created with voice recognition technology. There may be grammatical, spelling, punctuation or sound alike errors Timing/Duration: today Activities at Onset: none Quality: aching Abdominal Pain Onset Location: periumbilical Pain Radiation: no radiation Severity of Pain-Max: moderate Severity of Pain-Current: mild Modifying Factors: Improves With: palpation Associated Symptoms: diarrhea, nausea, vomiting Previous symptoms: no prior history Allergies/Adverse Reactions: adhesive Allergy (Intermediate, Verified 04/18/25 00:06) Blisters codeine Adverse Reaction (Mild, Verified 04/18/25 00:06) passed out/nauseated Home Medications: No Reportable Medications [No Reported Medications] 04/18/25 [History] Hx Tetanus, Diphtheria Vaccination/Date Given: Yes Hx Influenza Vaccination/Date Given: No Hx Pneumococcal Vaccination/Date Given: No Travel Risk - International Travel Have you traveled outside of the country in past 3 weeks: No - Emerging Infectious Disease Are you exhibiting symptoms associated with any current EIDs: Yes Symptoms: Abdominal Pain, Diarrhea, Vomitting - Review of Systems All Other Systems: Reviewed and Negative - Past Medical History Pertinent Past Medical History: Yes Neurological History: Other ENT History: No Pertinent History Cardiac History: Other Respiratory History: No Pertinent History Endocrine Medical History: No Pertinent History Musculoskeletal History: No Pertinent History GI Medical History: No Pertinent History History: No Pertinent History Psycho-Social History: Anxiety Female Reproductive Disorders: No Pertinent History, Other Other Medical History: Neurology appointment scheduled for March "passing out". "Family doctor thinks it could be dysautonomia. cardiosyncope, started on ozempic by Dr. Connors on 02/27/24. - Past Surgical History Past Surgical History: Yes Neuro Surgical History: No Pertinent History Cardiac: No Pertinent History Respiratory: No Pertinent History Gastrointestinal: No Pertinent History Genitourinary: No Pertinent History Musculoskeletal: No Pertinent History Female Surgical History: Tubal Ligation - Female History Hx Last Menstrual Period: 03/25/25 Hx Now: No - Social History Smoking Status: Smoker, status unknown Exposure to second hand smoke: No Drug Use: none - Social Determinants of Health Will the patient participate in the screening: Yes Do you worry about a steady place to live?: No Do you have any problems with any of the following?: No known problems In the past 12 months,have you had to go without utilities?: No Transportation Issues: No Has anyone in your support network made you feel unsafe?: No Have you or anyone in your house had to go w/o enough food: No - Nursing Vital Signs Nursing Vital Signs: Initial Vital Signs Temperature 96 F 04/18/25 00:07 Pulse Rate 95 H 04/18/25 00:07 Respiratory Rate 18 04/18/25 00:07 Blood Pressure 103/82 04/18/25 00:07 O2 Sat by Pulse Oximetry 99 04/18/25 00:07 Pain Scale Pain Intensity 5 - Physical Exam General Appearance: no apparent distress, alert Eye Exam: PERRL/EOMI, eyes nml inspection Ears, Nose, Throat Exam: normal ENT inspection, pharynx normal Neck Exam: normal inspection, full range of motion Respiratory Exam: normal breath sounds, lungs clear, airway intact, No respiratory distress Cardiovascular Exam: regular rate/rhythm, normal heart sounds Gastrointestinal/Abdomen Exam: soft, tenderness (Periumbilical tenderness to palpation), No mass Back Exam: normal inspection, normal range of motion, No CVA tenderness, No vertebral tenderness Extremity Exam: normal inspection, normal range of motion, pelvis stable Neurologic Exam: alert, oriented x 3, cooperative, normal mood/affect, sensation nml, No motor deficits Skin Exam: normal color, warm, dry Lymphatic Exam: No adenopathy SpO2 Interpretation: normal SpO2: 99 O2 Delivery: Room Air - Course Nursing assessment & vital signs reviewed: Yes - CT Exams Abdomen/Pelvis CT Interpretation: Tele-radiologist Report (Small reactive mesenteric lymphadenopathy diverticulosis. Otherwise no acute findings) Ordered Tests: Active Orders 24 hr Category Date Time Status IV Insertion STAT Care 04/18/25 00:06 Active ABDOMEN AND PELVIS W/0 CONTRAS [CT] Stat Exams 04/18/25 00:06 Completed CBC W DIFF Stat Lab 04/18/25 00:21 Completed CMP Stat Lab 04/18/25 00:21 Completed HCG QUALITATIVE, URINE Stat Lab 04/18/25 00:21 Completed LIPASE Stat Lab 04/18/25 00:21 Completed TROPONIN Q4H Lab 04/18/25 00:21 Completed TROPONIN Q4H Lab 04/18/25 04:15 Ordered TROPONIN Q4H Lab 04/18/25 08:15 Ordered UA W/RFX UR CULTURE Stat Lab 04/18/25 00:21 Completed Medication Summary Generic Name Dose Route Start Last Admin Trade Name Freq PRN Reason Stop Dose Admin Sodium Chloride 1,000 mls @ 200 mls/hr 04/18/25 00:15 04/18/25 00:38 Sodium Chloride 0.9% 1000 Ml IV 05/18/25 00:14 200 mls/hr .Q5H ADEN Administration Discontinued Medications Generic Name Dose Route Start Last Admin Trade Name Freq PRN Reason Stop Dose Admin Ketorolac Tromethamine 30 mg 04/18/25 00:41 04/18/25 00:43 Ketorolac Tromethamine 30 Mg/Ml Inj IV 04/18/25 00:42 30 mg STAT ONE Administration Ketorolac Tromethamine Confirm 04/18/25 00:43 Ketorolac Tromethamine 30 Mg/Ml Inj Administered 04/18/25 00:44 Dose 30 mg .ROUTE .STK-MED ONE Morphine Sulfate 2 mg 04/18/25 00:06 04/18/25 00:40 Morphine Sulfate 2 Mg/Ml Inj IV 04/18/25 00:07 Not Given STAT ONE Ondansetron HCl 4 mg 04/18/25 00:06 04/18/25 00:40 Ondansetron Hcl 4 Mg/2 Ml Vial IV 04/18/25 00:07 4 mg STAT ONE Administration Ondansetron HCl Confirm 04/18/25 00:37 Ondansetron Hcl 4 Mg/2 Ml Vial Administered 04/18/25 00:38 Dose 4 mg .ROUTE .STK-MED ONE Pantoprazole Sodium 40 mg 04/18/25 00:06 12 00:41 Protonix (Pantoprazole) 40 Mg Tablet PO 04/18/25 00:07 40 mg STAT ONE Administration Pantoprazole Sodium Confirm 04/18/25 00:37 Pantoprazole 40 Mg Vial Administered 04/18/25 00:38 Dose 40 mg IV .STK-MED ONE Pantoprazole Sodium Confirm 04/18/25 00:41 Protonix (Pantoprazole) 40 Mg Tablet Administered 04/18/25 00:42 Dose 40 mg .ROUTE .STK-MED ONE Sterile Water Confirm 04/18/25 00:37 Water For Injection,Sterile 10 Ml Vial Administered 04/18/25 00:38 Dose 10 ml IJ .STK-MED ONE Lab/Rad Data: Laboratory Result Diagrams 04/18/25 00:21 04/18/25 00:21 Laboratory Results 04/18/25 04/18/25 04/18/25 Range/Units 00:21 00:21 00:21 WBC (3.98-10.04) x10^3/uL RBC (3.93-5.22) x10^6/uL Hgb (11.2-15.7) g/dL Hct (34.1-44.9) % MCV (79.4-94.8) fL MCH (25.6-32.2) pg MCHC (32.2-35.5) g/dL RDW (11.7-14.4) % Plt Count (182-369) x10^3/uL MPV (9.4-12.3) fL Gran % (34.0-71.1) % Immature Gran % (Auto) (0.001-0.429) % Nucleat RBC Rel Count (0.00-0.2) % Eos # (Auto) (0.04-0.36) x10^3/uL Immature Gran # (Auto) (0.001-0.031) x10^3u/L Absolute Lymphs (auto) (1.18-3.74) x10^3/uL Absolute Monos (auto) (0.24-0.86) x10^3/uL Absolute Nucleated RBC (0.00-0.012) x10^3u/L Lymphocytes % (19.3-51.7) % Monocytes % (4.7-12.5) % Eosinophils % (0.7-5.8) % Basophils % (0.1-1.2) % Absolute Granulocytes (1.56-6.13) x10^3/uL Basophils # (0.01-0.08) x10^3/uL Sodium 140 (135-145) mmol/L Potassium 4.2 (3.5-5.1) mmol/L Chloride 103 (98-107) mmol/L Carbon Dioxide 25 (22-30) mmol/L Anion Gap 17.0 H (5-15) MEQ/L BUN 15 (7-17) mg/dL Creatinine 0.90 (0.52-1.04) mg/dL Estimated GFR 86.0 ML/MIN Glucose 126 H (74-106) mg/dL Calcium 9.8 (8.4-10.2) mg/dL Total Bilirubin 0.80 (0.2-1.3) mg/dL AST 27 (14-36) U/L ALT 30 (0-35) U/L Alkaline Phosphatase 64 (38-126) U/L Troponin I < 0.012 (0.000-0.033) ng/mL Serum Total Protein 8.0 (6.3-8.2) g/dL Albumin 4.8 (3.5-5.0) g/dL Lipase 52 (23-300) U/L Urine Color (Yellow) Urine Appearance (Clear) Urine pH (4.6-8.0) Ur Specific [place] (1.005-1.030) Urine Protein (Negative) Urine Glucose (UA) (Negative) mg/dL Urine Ketones (Negative) Urine Blood (Negative) Urine Nitrite (Negative) Urine Bilirubin (Negative) Urine Urobilinogen (0.2) mg/dL Ur Leukocyte Esterase (Negative) U Hyaline Cast (Auto) (0-2) /LPF Urine Microscopic RBC (0-5) /HPF Urine Microscopic WBC (0-5) /HPF Ur Epithelial Cells (None Seen) /HPF Urine Bacteria (None Seen) /HPF Urine Culture Reflexed (NO) Urine HCG, Qual NEGATIVE (NEGATIVE) 04/18/25 04/18/25 Range/Units 00:21 00:21 WBC 9.5 (3.98-10.04) x10^3/uL RBC 4.89 (3.93-5.22) x10^6/uL Hgb 14.6 (11.2-15.7) g/dL Hct 43.9 (34.1-44.9) % MCV 89.8 (79.4-94.8) fL MCH 29.9 (25.6-32.2) pg MCHC 33.3 (32.2-35.5) g/dL RDW 12.2 (11.7-14.4) % Plt Count 233 (182-369) x10^3/uL MPV 11.9 (9.4-12.3) fL Gran % 84.6 H (34.0-71.1) % Immature Gran % (Auto) 0.2 (0.001-0.429) % Nucleat RBC Rel Count 0.0 (0.00-0.2) % Eos # (Auto) 0.10 (0.04-0.36) x10^3/uL Immature Gran # (Auto) 0.02 (0.001-0.031) x10^3u/L Absolute Lymphs (auto) 0.78 L (1.18-3.74) x10^3/uL Absolute Monos (auto) 0.51 (0.24-0.86) x10^3/uL Absolute Nucleated RBC 0.00 (0.00-0.012) x10^3u/L Lymphocytes % 8.2 L (19.3-51.7) % Monocytes % 5.4 (4.7-12.5) % Eosinophils % 1.1 (0.7-5.8) % Basophils % 0.5 (0.1-1.2) % Absolute Granulocytes 8.02 H (1.56-6.13) x10^3/uL Basophils # 0.05 (0.01-0.08) x10^3/uL Sodium (135-145) mmol/L Potassium (3.5-5.1) mmol/L Chloride (98-107) mmol/L Carbon Dioxide (22-30) mmol/L Anion Gap (5-15) MEQ/L BUN (7-17) mg/dL Creatinine (0.52-1.04) mg/dL Estimated GFR ML/MIN Glucose (74-106) mg/dL Calcium (8.4-10.2) mg/dL Total Bilirubin (0.2-1.3) mg/dL AST (14-36) U/L ALT (0-35) U/L Alkaline Phosphatase (38-126) U/L Troponin I (0.000-0.033) ng/mL Serum Total Protein (6.3-8.2) g/dL Albumin (3.5-5.0) g/dL Lipase (23-300) U/L Urine Color Yellow (Yellow) Urine Appearance Clear (Clear) Urine pH 5.5 (4.6-8.0) Ur Specific [place] >=1.030 A (1.005-1.030) Urine Protein Trace A (Negative) Urine Glucose (UA) Negative (Negative) mg/dL Urine Ketones Trace A (Negative) Urine Blood Negative (Negative) Urine Nitrite Negative (Negative) Urine Bilirubin Negative (Negative) Urine Urobilinogen 1.0 A (0.2) mg/dL Ur Leukocyte Esterase Trace A (Negative) U Hyaline Cast (Auto) NONE SEEN (0-2) /LPF Urine Microscopic RBC 0-2 (0-5) /HPF Urine Microscopic WBC 0-2 (0-5) /HPF Ur Epithelial Cells Rare (None Seen) /HPF Urine Bacteria None Seen (None Seen) /HPF Urine Culture Reflexed NO (NO) Urine HCG, Qual (NEGATIVE) - Progress Progress: improved Progress Note: 35-year-old female history of anxiety presents to our ED for evaluation of nausea vomiting abdominal pain and diarrhea. Symptoms started today. Abdominal pain is periumbilical. No associated chest pain or shortness of breath. No trauma. Patient rates her pain 5 out of 10. Patient otherwise feels well. Physical exam reveals periumbilical tenderness to palpation. Physical exam otherwise unremarkable. CT abdomen pelvis reveals small reactive mesenteric lymphadenopathy which is likely contributing to patient's abdominal discomfort. Diverticulosis observed on CT scan no diverticulitis. Patient reassessed. Abdominal pain resolved. Laboratory workup otherwise nonremarkable. Patient states she is ready for discharge. She voices no other complaints or concerns at this time. No obvious UTI on urinalysis. However specific gravity elevated in line with patient's dehydration. History obtained from patient. Differential diagnosis includes colitis, gastroenteritis, diverticulitis, mesenteric adenitis Portions of this note were created with voice recognition technology. There may be grammatical, spelling, punctuation or sound alike errors Complexity of problems addressed is moderate acute complicated. No critical care time. Complexity of data reviewed and analyzed is moderate. Test ordered chest reviewed results analyzed and correlated clinically with history and physical exam. Risk of complication and or risk of morbidity/mortality of patient management is low. Vital stable. Time spent to discharge patient is approximately 15 minutes. Plan of care established for shared decision making. No social determinants of health present to impede follow-up. Portions of this note were created with voice recognition technology. There may be grammatical, spelling, punctuation or sound alike errors 04/18/25 02:38 Counseled pt/family regarding: lab results, diagnosis, need for follow-up, rad results - Departure Departure Disposition: Home Clinical Impression: Dehydration, Abdominal pain, Nausea vomiting and diarrhea Condition: Stable Critical Care Time: No Referrals: VALENCIA WILKES NP [Primary Care Provider, [facility]] - Follow up/PCP as directed
[2025-04-18 00:29] LABS: HCG URINE TEST NEGATIVE (NEGATIVE)
[2025-04-18 00:34] LABS: Glucose, Urine Negative (Negative); Protein,Urine Dip Trace (Negative); RBC 0-2 /HPF (0-5); WBC 0-2 /HPF (0-5)
[2025-04-18] MEDS ORDERED: PROTONIX 40 MG IV IV ONE (00:37)
[2025-04-18] MEDS ORDERED: Zofran 4 MG/2 ML VIAL ONE (00:37)
[2025-04-18] MEDS ORDERED: Sterile H2O 10 ml IJ ONE (00:37)
[2025-04-18 00:39] LABS: Calcium 9.8 mg/dL (8.4-10.2); Carbon Dioxide 25.0 mmol/L (22-30); Creatinine 1 0.9 mg/dL (0.52-1.04); EST GLOMERULAR FILTRATION RATE 86.0 ML/MIN; Glucose 126.0 mg/dL (74-106); Potassium 4.2 mmol/L (3.5-5.1); SGOT/AST 27.0 U/L (14-36); SGPT/ALT 30.0 U/L (0-35); Total Protein 8.0 g/dL (6.3-8.2)
[2025-04-18] MEDS: MORPHINE SULFATE 2 MG INJ IV ONE (00:40)
[2025-04-18] MEDS: Zofran 4 MG/2 ML VIAL IV ONE (00:40)
[2025-04-18] MEDS ORDERED: Protonix 40MG Tablet ONE (00:41)
[2025-04-18] MEDS: Protonix 40MG Tablet PO ONE (00:41)
[2025-04-18] MEDS ORDERED: TORAdol 30 mg Injection ONE (00:43)
[2025-04-18] MEDS: TORAdol 30 mg Injection IV ONE (00:43)
--- NOTE | 2025-04-18 01:29 | XRAY ---
CLINICAL HISTORY: pain COMPARISON: 18:18:02 [employer]. TECHNIQUE: Contiguous axial images were obtained from the level of the diaphragm to the pubic symphysis without intravenous or oral contrast. Coronal and sagittal reconstructions were likewise performed and indicated to increase the sensitivity for detecting clinically relevant pathology. CT scan was performed according to ALARA (as low as reasonably achievable). FINDINGS: The visualized lung bases are clear. Evaluation of the abdominal and pelvic visceral organs is limited without intravenous contrast. The unenhanced liver, spleen, pancreas, and adrenal glands are grossly unremarkable. The gallbladder is present. The kidneys are normal in size and attenuation without obvious calcification. There is no hydronephrosis or perinephric stranding. The ureters are normal in caliber. Small reactive mesenteric lymphnodes. No evidence of focal or diffuse bowel wall thickening or evidence of bowel obstruction is seen. No imaging evidence of appendicitis. The aorta is normal in caliber. The urinary bladder is normal in contour. Pelvic viscera are grossly unremarkable. No aggressive appearing osseous lesions are identified. IMPRESSION: Multiple small uncomplicated colonic diverticulosis.-stable. No other new interval abnormality since prior study. Electronically Signed by: Andrea Banda MD. (04/18/2025 01:28:13 EST)
[2025-04-18 02:31] VITALS: O2SAT 99
[2025-04-18 02:33] VITALS: BP 113/75; PULSE 79
== END 2025-04-18 02:47 | disposition home or self-care (01) ==
LOC: ED 23:59
DX: E86.0 Dehydration (principal); R11.2 Nausea with vomiting, unspecified; R19.7 Diarrhea, unspecified; R10.33 Periumbilical pain